=== PATIENT | female | born 1985 | race Caucasian/White ===

== ENCOUNTER 2022-03-27 19:26 | Inpatient (IN) | payer OTHER, SELFPAY ==
--- NOTE | 2022-03-27 | ECG_ITS ---
Test Reason : med clearance Blood Pressure : / mmHG Vent. Rate : 077 BPM Atrial Rate : 077 BPM P-R Int : 158 ms QRS Dur : 078 ms QT Int : 384 ms P-R-T Axes : 062 024 031 degrees QTc Int : 434 ms Normal sinus rhythm Normal ECG No previous ECGs available Referred By: Donte Oliver Electronically Signed By:HAWA SANCHEZ MD
--- NOTE | ~2022-03-27 | XR_ITS ---
EXAMINATION: XR FOOT, LEFT CLINICAL INFORMATION: New onset left foot pain. COMPARISON: None TECHNIQUE: AP, lateral, and oblique views of the left foot. FINDINGS: The bony alignments are intact. The cortices are intact. Articular margins, joint space appear unremarkable. Enthesopathy is noted at the insertional site of the Achilles tendon to the calcaneus. Os trigonum is present. XR/XR foot LT 2V IMPRESSION: 1. No radiographic evidence of any acute osseous, articular or soft tissue abnormalities. 2. Enthesopathy at the insertional site of the Achilles tendon to the calcaneus.
[2022-03-27 19:33] VITALS: BP 112/38; PULSE 84; RESP 16; TEMP 37.1; O2SAT 95; BMI 24.7
[2022-03-27 20:00] LABS: MANUAL DIFF FLAG NO
[2022-03-27 20:06] LABS: Basophils Percent Auto 0.3 % (0-2); Eosinophils Absolute Auto 0.2 X10*3/uL (0.0-0.4); Eosinophils Percent Auto 1.9 % (0-4); Hematocrit 36.5 % (37.0-47.0); Hemoglobin 12.5 g/dl (12.0-16.0); Imm Gran Abs Auto 0.05 X10*3/uL (0.00-0.03); Imm Gran Pct Auto 0.5 % (0.0-0.4); Lymphocytes Absolute Auto 3.1 X10*3/uL (1.2-4.9); Lymphocytes Percent Auto 29.8 % (20-40); Mean Corpuscular HGB Conc 34.2 g/dl (31.0-35.0); Mean Corpuscular Hemoglobin 32.1 pg (27.0-33.0); Mean Corpuscular Volume 93.8 fL (80.0-98.0); Mean Platelet Volume 10.7 fL (9.4-12.3); Monocytes Absolute Auto 0.7 X10*3/uL (0.1-1.2); Monocytes Percent Auto 6.2 % (2-11); Neutrophils Absolute Auto 6.4 x10*3/uL (2.0-8.3); Neutrophils Percent Auto 61.3 % (45-73); Platelet Count 244 X10*3/uL (160-400); Red Blood Count 3.89 X10*6/uL (4.20-5.50); Red Cell Distribution Width 13.2 % (11.0-16.0); White Blood Count 10.4 X10*3/uL (4.8-10.8)
[2022-03-27 20:07] LABS: Appearance Urine Clear; Color Urine Yellow; Glucose Urine UA Negative (Negative); Leukocyte Esterase Urine Negative (Negative); Nitrite Urine Negative (Negative); PH 6.5 (5.0-9.0); Specific Gravity - Urine 1.025 (1.005-1.025); Urine Blood Negative (Negative); Urine Ketones Negative (Negative); Urine Protein Negative (Neg-Trace)
[2022-03-27 20:12] LABS: UPreg QC Valid YES; Urine Pregnancy POSITIVE (NEGATIVE)
[2022-03-27 20:13] LABS: Amphetamine Screen Urine Not Detected (Not Detect); Barbiturates, Urine Not Detected (Not Detect); Benzodiazepines Screen Urine Not Detected (Not Detect); Cannabinoid Screen Urine Not Detected (Not Detect); Cocaine Screen Urine Not Detected (Not Detect); Fentanyl, urine Not Detected (Not Detect); Opiate Screen Urine Not Detected (Not Detect); Phencyclidine Screen Urine Not Detected (Not Detect)
[2022-03-27 20:14] LABS: COVID-19 Test Negative (Negative); IDNOW Serial# 16C4AD1C
[2022-03-27 20:26] LABS: Acetaminophen LAB < 17 mcg/mL (<30); Alanine Aminotransferase 10 U/L (0-31); Albumin Level 3.8 g/dL (3.5-5.0); Alkaline Phosphatase 75 U/L (39-117); Anion Gap 12 (12-20); Aspartate Amino Transferase 13 U/L (5-31); Bilirubin Total 0.2 mg/dL (0.0-1.0); Blood Urea Nitrogen 11 mg/dL (9-16); Calcium 9.3 mg/dL (8.4-10.2); Carbon Dioxide 25 mmol/L (22-29); Chloride 104 mmol/L (96-108); Creatinine Clr Calc Pharmacy 113.7; Estimated Glomerular Filt Rate > 60; Ethanol < 10 mg/dL; Glucose Random 83 mg/dL (60-115); Magnesium 1.8 mg/dL (1.6-2.6); Potassium 4.2 mmol/L (3.3-5.1); Salicylate < 5.0 mg/dL (15-30); Sodium 137 mmol/L (135-145); Total Protein 6.4 g/dL (6.5-8.0)
--- NOTE | 2022-03-27 21:37 | ED_ITS ---
HPI - Psych General Chief Complaint: Psychiatric Symptoms Stated Complaint: SI Time Seen by Provider: 03/27/22 19:37 Source: patient Mode of arrival: EMS Limitations: no limitations History of Present Illness HPI Narrative: Patient today for years old 18 weeks with history of bipolar disorder, major depressive disorder came from [facility] for suicidal ideation hearing auditory voices telling her to kill herself, feel depressed patient was seen by outpatient crisis Section 12 for admission as inpatient. Five from point of fib patient denies any complaints no vaginal bleeding or abdominal pain Related Data Home Medications Medication Instructions Recorded Confirmed aripiprazole 10 mg tablet 20 mg PO DAILY 03/27/22 03/27/22 docusate sodium 100 mg capsule 1 cap PO BID PRN constipation 03/27/22 03/27/22 folic acid 1 mg tablet 2 tab PO DAILY 03/27/22 03/27/22 haloperidol 2 mg tablet 2 mg PO BID PRN Psychosis 03/27/22 03/27/22 levetiracetam 500 mg tablet 1 tab PO BID 03/27/22 03/27/22 lorazepam 0.5 mg tablet 1 tab PO BID 03/27/22 03/27/22 ondansetron 4 mg disintegrating 1 tab PO Q6H PRN nausea/vomiting 03/27/22 03/27/22 tablet prazosin 1 mg capsule 1 cap PO BEDTIME 03/27/22 03/27/22 pyridoxine (vitamin B6) 25 mg 1 tab PO TID PRN nausea/vomiting 03/27/22 03/27/22 tablet (Vitamin B-6) sertraline 50 mg tablet 1 tab PO DAILY 03/27/22 03/27/22 Allergies Allergy/AdvReac Type Severity Reaction Status Date / Time No Known Allergies Allergy Verified 03/27/22 19:43 Review of Systems Review of Systems: Yes all other systems are reviewed and are negative PMFSH Social History Social History Household Members: Spouse and Family Housing: House Do you presently have visiting nurse or other home services: No Patient Tobacco Use Status: Never used Tobacco Smoked in Last 30 Days: No e-Cigarette/Vaping Use: Never Used Patient Interested in Nicotine Replacement: No Patient Given Instructions on How to Stop Smoking: No Second Hand Smoke Exposure: No Use of substances other than those prescribed or required for medical reasons: No Do you feel safe in your current relationship?: Yes Is there a partner from a previous relationship who is making you feel unsafe now?: No Are you made to feel afraid or neglected: No Advance Directives: No Advance Directives Information Provided: Yes Do you have thoughts of harming others: None Do you have a plan to hurt others: No Plan Recently lost weight without trying: No Nutrition Risks: No Nutritional Risk Patient : Yes : No Poor oral hygiene: No Physical Exam Vital Signs: Vital Signs: Last Vital Signs Temp 98.7 F 03/27/22 19:33 Pulse 84 03/27/22 19:33 Resp 16 03/27/22 19:33 BP 112/38 L 03/27/22 19:33 Pulse Ox 95 03/27/22 19:33 O2 Del Method 03/27/22 19:33 BMI result Body Mass Index 24.7 Appearance: Alert. Oriented X3. No acute distress. Eyes: PERRLA, No Nystagmus ENT: Pharynx normal. Oral Mucosa moist Neck: Normal inspection. Neck supple. CVS: Normal heart rate and rhythm. Pulses normal. Respiratory: No respiratory distress. Equal air entry bilateral, no wheezing/rales/rhonchi Abdomen: Soft and nontender. Bowel sounds are present, no mass palpable, no CVA tenderness Skin: Skin warm and dry. Normal skin color. Normal skin turgor. Extremities: No lower extremity edema. No calf tenderness psych; depressed mood quite calm cooperative denies any plan/suicidal at this time Neuro: Oriented X 3. No motor deficit. No sensory deficit.No cerebellar signs , cranial nerves II-XII intact Medical Decision Making Medical Decision Making MDM Narrative: Patient with major depression, bipolar disorder came from [facility] with increased depression suicidal feeling seen in the field by crisis plan to admit patient for inpatient psych evaluation Lab Data [facility] Lab Attestation statement: I reviewed the patient's lab results. 03/27/22 19:52 03/27/22 19:52 Labs: Lab Results 03/27/22 03/27/22 03/27/22 Range/Units 19:52 19:52 19:52 WBC (4.8-10.8) X10*3/uL RBC (4.20-5.50) X10*6/uL Hgb (12.0-16.0) g/dl Hct (37.0-47.0) % MCV (80.0-98.0) fL MCH (27.0-33.0) pg MCHC (31.0-35.0) g/dl RDW (11.0-16.0) % Plt Count (160-400) X10*3/uL MPV (9.4-12.3) fL Immature Gran % (Auto) (0.0-0.4) % Neut % (Auto) (45-73) % Lymph % (Auto) (20-40) % [place] % (Auto) (2-11) % Eos % (Auto) (0-4) % Baso % (Auto) (0-2) % Lymph # (Auto) (1.2-4.9) X10*3/uL [place] # (Auto) (0.1-1.2) X10*3/uL Eos # (Auto) (0.0-0.4) X10*3/uL Baso # (Auto) (0.0-0.2) X10*3/uL Abs Immat Gran (auto) (0.00-0.03) X10*3/uL Absolute Neuts (auto) (2.0-8.3) x10*3/uL Absolute Nucleated RBC (0.0-0.012) X10*3/uL Nucleated RBC % (auto) (0.0-0.2) /100WBC Sodium 137 (135-145) mmol/L Potassium 4.2 (3.3-5.1) mmol/L Chloride 104 (96-108) mmol/L Carbon Dioxide 25 (22-29) mmol/L Anion Gap 12 (12-20) BUN 11 (9-16) mg/dL Creatinine 0.60 (0.5-1.4) mg/dL Estim Creat Clear Calc 113.7 Estimated GFR > 60 Random Glucose 83 (60-115) mg/dL Calcium 9.3 (8.4-10.2) mg/dL Magnesium 1.8 (1.6-2.6) mg/dL Total Bilirubin 0.2 (0.0-1.0) mg/dL AST 13 (5-31) U/L ALT 10 (0-31) U/L Alkaline Phosphatase 75 (39-117) U/L Total Protein 6.4 L (6.5-8.0) g/dL Albumin 3.8 (3.5-5.0) g/dL Urine Color Urine Appearance Urine pH (5.0-9.0) Ur Specific [place] (1.005-1.025) Urine Protein (Neg-Trace) mg/dL Urine Glucose (UA) (Negative) mg/dL Urine Ketones (Negative) mg/dL Urine Blood (Negative) Urine Nitrite (Negative) Ur Leukocyte Esterase (Negative) Urine Test (NEGATIVE) Salicylates < 5.0 L (15-30) mg/dL Urine Opiates Screen (Not Detect) Urine Fentanyl Screen (Not Detect) Acetaminophen < 17 (<30) mcg/mL Ur Barbiturates Screen (Not Detect) Ur Phencyclidine Scrn (Not Detect) Ur Amphetamines Screen (Not Detect) U Benzodiazepines Scrn (Not Detect) Urine Cocaine Screen (Not Detect) U Marijuana (THC) Screen (Not Detect) Ethyl Alcohol < 10 mg/dL COVID-19 (NURIS) Negative (Negative) COVID-19 Clin Com See Note 03/27/22 03/27/22 03/27/22 Range/Units 19:52 19:55 19:55 WBC 10.4 (4.8-10.8) X10*3/uL RBC 3.89 L (4.20-5.50) X10*6/uL Hgb 12.5 (12.0-16.0) g/dl Hct 36.5 L (37.0-47.0) % MCV 93.8 (80.0-98.0) fL MCH 32.1 (27.0-33.0) pg MCHC 34.2 (31.0-35.0) g/dl RDW 13.2 (11.0-16.0) % Plt Count 244 (160-400) X10*3/uL MPV 10.7 (9.4-12.3) fL Immature Gran % (Auto) 0.5 H (0.0-0.4) % Neut % (Auto) 61.3 (45-73) % Lymph % (Auto) 29.8 (20-40) % [place] % (Auto) 6.2 (2-11) % Eos % (Auto) 1.9 (0-4) % Baso % (Auto) 0.3 (0-2) % Lymph # (Auto) 3.1 (1.2-4.9) X10*3/uL [place] # (Auto) 0.7 (0.1-1.2) X10*3/uL Eos # (Auto) 0.2 (0.0-0.4) X10*3/uL Baso # (Auto) 0.0 (0.0-0.2) X10*3/uL Abs Immat Gran (auto) 0.05 H (0.00-0.03) X10*3/uL Absolute Neuts (auto) 6.4 (2.0-8.3) x10*3/uL Absolute Nucleated RBC 0.000 (0.0-0.012) X10*3/uL Nucleated RBC % (auto) 0.0 (0.0-0.2) /100WBC Sodium (135-145) mmol/L Potassium (3.3-5.1) mmol/L Chloride (96-108) mmol/L Carbon Dioxide (22-29) mmol/L Anion Gap (12-20) BUN (9-16) mg/dL Creatinine (0.5-1.4) mg/dL Estim Creat Clear Calc Estimated GFR Random Glucose (60-115) mg/dL Calcium (8.4-10.2) mg/dL Magnesium (1.6-2.6) mg/dL Total Bilirubin (0.0-1.0) mg/dL AST (5-31) U/L ALT (0-31) U/L Alkaline Phosphatase (39-117) U/L Total Protein (6.5-8.0) g/dL Albumin (3.5-5.0) g/dL Urine Color Urine Appearance Urine pH (5.0-9.0) Ur Specific [place] (1.005-1.025) Urine Protein (Neg-Trace) mg/dL Urine Glucose (UA) (Negative) mg/dL Urine Ketones (Negative) mg/dL Urine Blood (Negative) Urine Nitrite (Negative) Ur Leukocyte Esterase (Negative) Urine Test POSITIVE H (NEGATIVE) Salicylates (15-30) mg/dL Urine Opiates Screen Not Detected (Not Detect) Urine Fentanyl Screen Not Detected (Not Detect) Acetaminophen (<30) mcg/mL Ur Barbiturates Screen Not Detected (Not Detect) Ur Phencyclidine Scrn Not Detected (Not Detect) Ur Amphetamines Screen Not Detected (Not Detect) U Benzodiazepines Scrn Not Detected (Not Detect) Urine Cocaine Screen Not Detected (Not Detect) U Marijuana (THC) Screen Not Detected (Not Detect) Ethyl Alcohol mg/dL COVID-19 (NURIS) (Negative) COVID-19 Clin Com 03/27/22 Range/Units 19:55 WBC (4.8-10.8) X10*3/uL RBC (4.20-5.50) X10*6/uL Hgb (12.0-16.0) g/dl Hct (37.0-47.0) % MCV (80.0-98.0) fL MCH (27.0-33.0) pg MCHC (31.0-35.0) g/dl RDW (11.0-16.0) % Plt Count (160-400) X10*3/uL MPV (9.4-12.3) fL Immature Gran % (Auto) (0.0-0.4) % Neut % (Auto) (45-73) % Lymph % (Auto) (20-40) % [place] % (Auto) (2-11) % Eos % (Auto) (0-4) % Baso % (Auto) (0-2) % Lymph # (Auto) (1.2-4.9) X10*3/uL [place] # (Auto) (0.1-1.2) X10*3/uL Eos # (Auto) (0.0-0.4) X10*3/uL Baso # (Auto) (0.0-0.2) X10*3/uL Abs Immat Gran (auto) (0.00-0.03) X10*3/uL Absolute Neuts (auto) (2.0-8.3) x10*3/uL Absolute Nucleated RBC (0.0-0.012) X10*3/uL Nucleated RBC % (auto) (0.0-0.2) /100WBC Sodium (135-145) mmol/L Potassium (3.3-5.1) mmol/L Chloride (96-108) mmol/L Carbon Dioxide (22-29) mmol/L Anion Gap (12-20) BUN (9-16) mg/dL Creatinine (0.5-1.4) mg/dL Estim Creat Clear Calc Estimated GFR Random Glucose (60-115) mg/dL Calcium (8.4-10.2) mg/dL Magnesium (1.6-2.6) mg/dL Total Bilirubin (0.0-1.0) mg/dL AST (5-31) U/L ALT (0-31) U/L Alkaline Phosphatase (39-117) U/L Total Protein (6.5-8.0) g/dL Albumin (3.5-5.0) g/dL Urine Color Yellow Urine Appearance Clear Urine pH 6.5 (5.0-9.0) Ur Specific [place] 1.025 (1.005-1.025) Urine Protein Negative (Neg-Trace) mg/dL Urine Glucose (UA) Negative (Negative) mg/dL Urine Ketones Negative (Negative) mg/dL Urine Blood Negative (Negative) Urine Nitrite Negative (Negative) Ur Leukocyte Esterase Negative (Negative) Urine Test (NEGATIVE) Salicylates (15-30) mg/dL Urine Opiates Screen (Not Detect) Urine Fentanyl Screen (Not Detect) Acetaminophen (<30) mcg/mL Ur Barbiturates Screen (Not Detect) Ur Phencyclidine Scrn (Not Detect) Ur Amphetamines Screen (Not Detect) U Benzodiazepines Scrn (Not Detect) Urine Cocaine Screen (Not Detect) U Marijuana (THC) Screen (Not Detect) Ethyl Alcohol mg/dL COVID-19 (NURIS) (Negative) COVID-19 Clin Com Discharge Plan Discharge Clinical Impression: Bipolar disorder, Suicidal ideation, with 18 completed weeks gestation Patient Disposition: Admitted As Inpatient Interventions: Admission Worksheet (ED) Last Done: 03/27/22 23:53 Discharge Date/Time: 03/27/22 23:53
--- NOTE | 2022-03-28 00:20 | PC.ADMIT ---
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 PT IS ALERT AND ORIENTED X 3. 15 MINUTE SAFETY CHECKS. PSYCH GROUP. PT IS 18 WEEKS WITH HER SECOND CHILD. PT DOES NOT CURRENTLY HAVE CUSTODY OF HER 1.5 YEAR OLD DAUGHTER. PT IS A CONDITIONAL VOLUNTARY. SHE REPORTS HEARING VOICES AND WANTING TO CUT HER ARMS. PT ENDORSES SI BUT NO HI. REPORTS MODERATE ANXIETY AND DEPRESSION. PT HAS BEEN HAVING NO DIFFICULTY SLEEPING OR EATING. PTS MOOD IS DEPRESSED AND AFFECT IS SULLEN. PT HAS A TRAUMA HISTORY. INSIGHT AND JUDGMENT ARE IMPAIRED.
[2022-03-28] MEDS: Sertraline HCL 50 MG TABLET PO (08:06)
[2022-03-28] MEDS: levETIRAcetam 500 MG TABLET PO ×2 (08:06→21:15)
[2022-03-28] MEDS: ARIPiprazole 20 MG TABLET PO (08:06)
[2022-03-28] MEDS: Folic Acid 1 MG TABLET 2 MG PO (08:06)
[2022-03-28 08:08] VITALS: BP 114/58; PULSE 101; RESP 18; TEMP 36.4; O2SAT 98
[2022-03-28 09:25] LABS: Estimated Average Glucose 94 mg/dL; Hemoglobin A1c % 4.9 %
[2022-03-28 09:28] LABS: Cholesterol 263 mg/dL; HDL Cholesterol 54 mg/dL; LDL Cholesterol Calculated 180 mg/dl; Triglycerides 148 mg/dL
--- NOTE | 2022-03-28 10:12 | PM.NEUROCN ---
History of Present Illness Data of Consult Service Date: 03/28/22 Primary Care Provider: Unknown Physician HPI Reason for consult: Seizure disorder 36 years old woman with bipolar disorder who was admitted on psychiatric floor. She was noted to be 18 weeks while she reported that she was taking levetiracetam for seizure disorder. This consultation was requested about proper use of this medicine during . Her previous records were not available at this time. She stated that she had 2 seizures last year while she was sleeping. She was taking to normal hospital and since then she has been taking this medicine. She has not been seeing a neurologist. She did not know what exactly happened during the seizure. Review of Systems Review of Systems: No recent seizure. [facility] Social History Social History Household Members: Spouse and Family Housing: House Do you presently have visiting nurse or other home services: No Patient Tobacco Use Status: Never used Tobacco Smoked in Last 30 Days: No e-Cigarette/Vaping Use: Never Used Patient Interested in Nicotine Replacement: No Patient Given Instructions on How to Stop Smoking: No Second Hand Smoke Exposure: No Use of substances other than those prescribed or required for medical reasons: No Currently Displaying Signs/Symptoms of Drug Intoxication Withdrawal: No Do you feel safe in your current relationship?: Yes Is there a partner from a previous relationship who is making you feel unsafe now?: No Are you made to feel afraid or neglected: No Advance Directives: No Advance Directives Information Provided: Yes Do you have thoughts of harming others: None Do you have a plan to hurt others: No Plan Recently lost weight without trying: No Nutrition Risks: No Nutritional Risk Patient : Yes : No Poor oral hygiene: No Meds Allergies Allergy/AdvReac Type Severity Reaction Status Date / Time No Known Allergies Allergy Verified 03/27/22 19:43 Active Medications: Current Medications Acetaminophen (Acetaminophen 325 Mg Tablet) 650 mg PO Q6H PRN PRN Reason: Headache/Pain Mild Scale (1-3) Al Hydroxide/Mg Hydroxide (Magnesium Hydrox/Alum Hydrox 30 Ml Oral.Susp) 30 ml PO Q6H PRN PRN Reason: Heartburn/Nausea Aripiprazole (Aripiprazole 20 Mg Tablet) 20 mg PO DAILY GREG Last Admin: 03/28/22 08:06 Dose: 20 mg Docusate Sodium (Docusate Sodium 100 Mg Capsule) 100 mg PO BID PRN PRN Reason: constipation Folic Acid (Folic Acid 1 Mg Tablet) 2 mg PO DAILY [facility] Last Admin: 03/28/22 08:06 Dose: 2 mg Haloperidol (Haloperidol 1 Mg Tablet) 2 mg PO BID PRN PRN Reason: Psychosis Levetiracetam (Levetiracetam 500 Mg Tablet) 500 mg PO BID [facility] Last Admin: 03/28/22 08:06 Dose: 500 mg Magnesium Hydroxide (Milk Of Magnesia 30 Ml Oral.Susp) 30 ml PO DAILY PRN PRN Reason: Constipation Ondansetron HCl (Ondansetron Odt 4 Mg Tab.Rapdis) 4 mg TRANSLINGU Q6H PRN PRN Reason: nausea/vomiting Prazosin HCl (Prazosin Hcl 1 Mg Capsule) 1 mg PO BEDTIME [facility]; Protocol Pyridoxine HCl (Pyridoxine Hcl (Vitamin B6) 50 Mg Tablet) 25 mg PO TID PRN PRN Reason: nausea/vomiting Sertraline HCl (Sertraline Hcl 50 Mg Tablet) 50 mg PO DAILY [facility] Last Admin: 03/28/22 08:06 Dose: 50 mg Trazodone HCl (Trazodone Hcl 50 Mg Tablet) 50 mg PO BEDTIME PRN PRN Reason: Insomnia Home Medications Medication Instructions Recorded Confirmed Last Taken Type aripiprazole 10 mg tablet 20 mg PO DAILY 03/27/22 03/27/22 Unknown History docusate sodium 100 mg capsule 1 cap PO BID PRN constipation 03/27/22 03/27/22 Unknown History folic acid 1 mg tablet 2 tab PO DAILY 03/27/22 03/27/22 Unknown History haloperidol 2 mg tablet 2 mg PO BID PRN Psychosis 03/27/22 03/27/22 Unknown History levetiracetam 500 mg tablet 1 tab PO BID 03/27/22 03/27/22 Unknown History lorazepam 0.5 mg tablet 1 tab PO BID 03/27/22 03/27/22 Unknown History ondansetron 4 mg disintegrating 1 tab PO Q6H PRN nausea/vomiting 03/27/22 03/27/22 Unknown History tablet prazosin 1 mg capsule 1 cap PO BEDTIME 03/27/22 03/27/22 Unknown History pyridoxine (vitamin B6) 25 mg 1 tab PO TID PRN nausea/vomiting 03/27/22 03/27/22 Unknown History tablet (Vitamin B-6) sertraline 50 mg tablet 1 tab PO DAILY 03/27/22 03/27/22 Unknown History Physical Exam Vital Signs: Vital Signs: Last Vital Signs Temp 97.6 F 03/28/22 08:08 Pulse 101 H 03/28/22 08:08 Resp 18 03/28/22 08:08 BP 114/58 L 03/28/22 08:08 Pulse Ox 98 03/28/22 08:08 O2 Del Method 03/28/22 08:08 BMI result Body Mass Index 24.7 Neuro: Other: She is alert and awake with normal spontaneity of speech fluency comprehension and flat affect. Face is symmetrical. Visual manjarrez are full. There is no pronator drift. [id number] testing is normal. Deep tendon reflexes were trace to 1+ with flexor plantars. Gait is normal. Speech is normal. Results Labs 03/27/22 19:52 03/27/22 19:52 Labs: Short CBC 03/27/22 Range/Units 19:52 WBC 10.4 (4.8-10.8) X10*3/uL Hgb 12.5 (12.0-16.0) g/dl Hct 36.5 L (37.0-47.0) % Plt Count 244 (160-400) X10*3/uL BMP 03/27/22 19:52 Sodium 137 Potassium 4.2 Chloride 104 Carbon Dioxide 25 BUN 11 Creatinine 0.60 Calcium 9.3 Liver Function 03/27/22 Range/Units 19:52 Total Bilirubin 0.2 (0.0-1.0) mg/dL AST 13 (5-31) U/L ALT 10 (0-31) U/L Alkaline Phosphatase 75 (39-117) U/L Albumin 3.8 (3.5-5.0) g/dL Urine 03/27/22 Range/Units 19:55 Urine Color Yellow Urine Appearance Clear Urine pH 6.5 (5.0-9.0) Ur Specific [place] 1.025 (1.005-1.025) Urine Protein Negative (Neg-Trace) mg/dL Urine Glucose (UA) Negative (Negative) mg/dL Assessment and Plan (1) Seizure disorder: Status: Acute 36 years old woman who stated that last year she had 2 seizures during sleep. She did not know exact details and her previous records were not available. She denied ever having seizures before or after. Apparently, she was put on levetiracetam. Now she was admitted for depression and was noted to be . If seizure disorder was confirmed, and I cannot confirm it without reviewing her records, she probably had generalized seizures. In that case, levetiracetam was a reasonable choice of drug. As far as is concerned, this type of medicine is discussed with the patient with pertinent risk factors but is not necessarily stopped, because of high risk of a seizure to then the medicine. Sometime the dose has to be adjusted. Following this thinking, I would recommend continuing the medicine. Please let me know if records from [facility] become available for review. Another aspect is, levetiracetam sometime can have behavioral side effects resulting in agitation and anger or worsening of psychiatric disease. For this, it might be reasonable to talk to her outpatient psychiatrist to see if that was noted after starting her on levetiracetam. If that was the case, it can be switched to an alternate medicine. Time Spent With Patient Time: Total time managing care of this patient today ____ minutes. Procedures Date of Service Date of Service: 03/28/22
[2022-03-28] MEDS: HaloperidoL 1 MG TABLET 2 MG PO ×2 (15:49→21:15)
[2022-03-28 16:20] VITALS: BP 133/81; PULSE 89; TEMP 36.1; O2SAT 95
--- NOTE | 2022-03-28 18:34 | HO.PSYADMNOT ---
HPI Date of Service: 03/28/22 Chief Complaint: Psychosis/SI Sources of Information: patient interviewed, chart reviewed and crisis/core team assessment reviewed HPI Subjective Notes: Ang Warning and Conditional Voluntary Healthcare Proxy: No Guardianship: No Medical Problems Affecting Mental Status: No Narrative: 36 yo female, history of PTSD, schizoaffective disorder 18 weeks with her son, presents from a local respite with an increase in SI, CAH, engaging in self-harming behaviors via scratching. Pt reports a recent increase in voices, distress, an increase in depressive sx without a clear precipitant. Reports a very supportive family and extended family, and in-laws, and states there is no current situational reason for sx increase. Pt has DCF involvement and had been told recently she needed to complete a 30 day in pt psych program as part of her requirement to maintain custody of her other children, ages 14 and 1.5 Past Psychiatric History: IP: several, she is used to admissions at [facility] there are too many people here at [facility] OP: Vanesa Katz-they are in process of termination as they have disagreed. Medical Evaluation Reviewed: Yes [facility] Medical History (Updated 03/29/22 @ 16:55 by Guerda Morton, ANDRAE) PTSD (post-traumatic stress disorder) Schizoaffective disorder Narrative: Seizure disorder-first occurred Dec 2021-she had 2 seizures while asleep- had observed them. Pt to meet with Dr. Gallagher from neurology at [facility] in the future. Family History: Mental Health issues she reports Social History: Born in [address] to many siblings to count Bullied in school, graduated 2009 [employer] student June 2020 Son-14 Daughter 1.5 Son-Expected August 2022 Parents, and In-laws are strong supports. Substance History: Hx of alcohol and cannabis to manage voices. Recent use x 1 of cannabis Trauma History: Affirms Diagnostics Vital Signs (24Hr): Vital Signs - 24 hr 03/27/22 19:33 03/28/22 08:08 03/28/22 16:20 Temperature 98.7 F 97.6 F 97.0 F Pulse Rate 84 101 H 89 Respiratory Rate 16 18 Blood Pressure 112/38 L 114/58 L 133/81 Pulse Oximetry 95 98 95 Oxygen Delivery Method Room Air Room Air Room Air BMI result Body Mass Index 24.7 Labs 03/27/22 19:52 03/27/22 19:52 Labs: Laboratory Results - last 48 hr 03/27/22 03/27/22 03/27/22 19:52 19:52 19:52 WBC RBC Hgb Hct MCV MCH MCHC RDW Plt Count MPV Immature Gran % (Auto) Neut % (Auto) Lymph % (Auto) [place] % (Auto) Eos % (Auto) Baso % (Auto) Lymph # (Auto) [place] # (Auto) Eos # (Auto) Baso # (Auto) Abs Immat Gran (auto) Absolute Neuts (auto) Absolute Nucleated RBC Nucleated RBC % (auto) Sodium 137 Potassium 4.2 Chloride 104 Carbon Dioxide 25 Anion Gap 12 BUN 11 Creatinine 0.60 Estim Creat Clear Calc 113.7 Estimated GFR > 60 Random Glucose 83 Estimat Average Glucose Hemoglobin A1c % Calcium 9.3 Magnesium 1.8 Total Bilirubin 0.2 AST 13 ALT 10 Alkaline Phosphatase 75 Total Protein 6.4 L Albumin 3.8 Triglycerides Cholesterol LDL Cholesterol, Calc HDL Cholesterol Urine Color Urine Appearance Urine pH Ur Specific Clarissa Urine Protein Urine Glucose (UA) Urine Ketones Urine Blood Urine Nitrite Ur Leukocyte Esterase Urine Test Salicylates < 5.0 L Urine Opiates Screen Urine Fentanyl Screen Acetaminophen < 17 Ur Barbiturates Screen Ur Phencyclidine Scrn Ur Amphetamines Screen U Benzodiazepines Scrn Urine Cocaine Screen U Marijuana (THC) Screen Ethyl Alcohol < 10 COVID-19 (NURIS) Negative COVID-19 Clin Com See Note 03/27/22 03/27/22 03/27/22 19:52 19:55 19:55 WBC 10.4 RBC 3.89 L Hgb 12.5 Hct 36.5 L MCV 93.8 MCH 32.1 MCHC 34.2 RDW 13.2 Plt Count 244 MPV 10.7 Immature Gran % (Auto) 0.5 H Neut % (Auto) 61.3 Lymph % (Auto) 29.8 [place] % (Auto) 6.2 Eos % (Auto) 1.9 Baso % (Auto) 0.3 Lymph # (Auto) 3.1 [place] # (Auto) 0.7 Eos # (Auto) 0.2 Baso # (Auto) 0.0 Abs Immat Gran (auto) 0.05 H Absolute Neuts (auto) 6.4 Absolute Nucleated RBC 0.000 Nucleated RBC % (auto) 0.0 Sodium Potassium Chloride Carbon Dioxide Anion Gap BUN Creatinine Estim Creat Clear Calc Estimated GFR Random Glucose Estimat Average Glucose Hemoglobin A1c % Calcium Magnesium Total Bilirubin AST ALT Alkaline Phosphatase Total Protein Albumin Triglycerides Cholesterol LDL Cholesterol, Calc HDL Cholesterol Urine Color Urine Appearance Urine pH Ur Specific Clarissa Urine Protein Urine Glucose (UA) Urine Ketones Urine Blood Urine Nitrite Ur Leukocyte Esterase Urine Test POSITIVE H Salicylates Urine Opiates Screen Not Detected Urine Fentanyl Screen Not Detected Acetaminophen Ur Barbiturates Screen Not Detected Ur Phencyclidine Scrn Not Detected Ur Amphetamines Screen Not Detected U Benzodiazepines Scrn Not Detected Urine Cocaine Screen Not Detected U Marijuana (THC) Screen Not Detected Ethyl Alcohol COVID-19 (NURSI) COVID-19 [facility] 03/27/22 03/28/22 03/28/22 19:55 08:30 08:30 WBC RBC Hgb Hct MCV MCH MCHC RDW Plt Count MPV Immature Gran % (Auto) Neut % (Auto) Lymph % (Auto) [place] % (Auto) Eos % (Auto) Baso % (Auto) Lymph # (Auto) [place] # (Auto) Eos # (Auto) Baso # (Auto) Abs Immat Gran (auto) Absolute Neuts (auto) Absolute Nucleated RBC Nucleated RBC % (auto) Sodium Potassium Chloride Carbon Dioxide Anion Gap BUN Creatinine Estim Creat Clear Calc Estimated GFR Random Glucose Estimat Average Glucose 94 Hemoglobin A1c % 4.9 Calcium Magnesium Total Bilirubin AST ALT Alkaline Phosphatase Total Protein Albumin Triglycerides 148 Cholesterol 263 LDL Cholesterol, Calc 180 HDL Cholesterol 54 Urine Color Yellow Urine Appearance Clear Urine pH 6.5 Ur Specific Clarissa 1.025 Urine Protein Negative Urine Glucose (UA) Negative Urine Ketones Negative Urine Blood Negative Urine Nitrite Negative Ur Leukocyte Esterase Negative Urine Test Salicylates Urine Opiates Screen Urine Fentanyl Screen Acetaminophen Ur Barbiturates Screen Ur Phencyclidine Scrn Ur Amphetamines Screen U Benzodiazepines Scrn Urine Cocaine Screen U Marijuana (THC) Screen Ethyl Alcohol COVID-19 (NURIS) COVID-19 [facility] Meds/Allergies Meds Home Medications Medication Instructions Recorded Confirmed Type aripiprazole 10 mg tablet 20 mg PO DAILY 03/27/22 03/27/22 History docusate sodium 100 mg capsule 1 cap PO BID PRN constipation 03/27/22 03/27/22 History folic acid 1 mg tablet 2 tab PO DAILY 03/27/22 03/27/22 History haloperidol 2 mg tablet 2 mg PO BID PRN Psychosis 03/27/22 03/27/22 History levetiracetam 500 mg tablet 1 tab PO BID 03/27/22 03/27/22 History lorazepam 0.5 mg tablet 1 tab PO BID 03/27/22 03/27/22 History ondansetron 4 mg disintegrating 1 tab PO Q6H PRN nausea/vomiting 03/27/22 03/27/22 History tablet prazosin 1 mg capsule 1 cap PO BEDTIME 03/27/22 03/27/22 History pyridoxine (vitamin B6) 25 mg 1 tab PO TID PRN nausea/vomiting 03/27/22 03/27/22 History tablet (Vitamin B-6) sertraline 50 mg tablet 1 tab PO DAILY 03/27/22 03/27/22 History Allergies Allergies Allergy/AdvReac Type Severity Reaction Status Date / Time No Known Allergies Allergy Verified 03/27/22 19:43 Mental Status Exam Mental Status Exam Patient Appearance: Fatigued Patient Orientation: Person, Place, Time and Situation Level of Consciousness: Alert Patient Behavior: Guarded, Talkative, Cooperative and Good Eye Contact Mood Description: Depressed and Anxious Affect Description: Anxious and Flat Patient Cognition Impaired: No Ability to Follow Directions: Good Speech Pattern: Spontaneous Speech and Soft-Spoken Memory Description: Episodic Impaired Hallucinations: Auditory Delusions: Paranoid Ideation and Present Perceptual Disturbances: Depersonalization and Derealization Thought Process: Rumination Thought Content: positive for Perseveration and positive for Suicidal Ideation Depressive Symptoms: Increased Anxiety, Diff. Making Decisions, Unhappiness, Thoughts of /Suicide and Low Self Esteem Abnormal Motor Activity Signs and Symptoms: Restlessness Judgement: Poor Assessment & Plan Assessment & Plan (1) with 18 completed weeks gestation: Status: Acute Code(s): Z3A.18 - 18 weeks gestation of (2) PTSD (post-traumatic stress disorder): Status: Acute Code(s): F43.10 - Post-traumatic stress disorder, unspecified (3) Schizoaffective disorder: Status: Acute Code(s): F25.9 - Schizoaffective disorder, unspecified Plan 36 yo female, 18 weeks , admitted from [facility] with SI, SIBS, and CAH. No clear precipitant to sx exacerbation except pt was told by DCF that she needs to do a 30 day inpatient psychiatric program as a requirement for keeping her children. Plan: Continue current regime Consult Dr. Fledman regarding Collateral contacts with family, providers, DCF Patient educated on: therapeutic strategies Informed Consent: further education needed Reason for continued inpatient stay Substantial Risk for: harm to self and rapid decompensation Statement Statement: I have reviewed the history and physical and performed a pertinent examination on my patient. No changes have occurred unless specified. If the History and Physical was not performed prior to admission, the Hospitalist's service will be consulted for completing the admission physical. Time Spent With Patient Time: Total time managing care of this patient today __60__ minutes.
[2022-03-28] MEDS: Prazosin HCL 1 MG CAPSULE PO (21:15)
[2022-03-29 07:00] VITALS: BMI 39.4
[2022-03-29] MEDS: Sertraline HCL 50 MG TABLET PO (08:12)
[2022-03-29] MEDS: ARIPiprazole 20 MG TABLET PO (08:12)
[2022-03-29] MEDS: levETIRAcetam 500 MG TABLET PO ×2 (08:12→21:19)
[2022-03-29] MEDS: Folic Acid 1 MG TABLET 2 MG PO (08:12)
[2022-03-29 08:20] VITALS: BP 97/59; PULSE 47; RESP 18; TEMP 36.6; O2SAT 97
--- NOTE | 2022-03-29 16:59 | HO.PSYCHPN ---
Subjective Subjective Date of Service: 03/29/22 Reason For Visit: Psychosis/SI Subjective Notes: Conditional Voluntary Healthcare Proxy: No Guardianship: No Medical Problems Affecting Mental Status: No Interim History: Anita reports feeling some improvement. Reports she slept well and overall is feeling less anxious. Discussed issues with incontinence (urinary) pt's had discussed with social media senior associate. Pt reports that these symptoms have drastically improved with medication changes. I have had no accidents . Discussed possible urology referral-pt not thinking it is needed at this time. Continues to have difficulty with the size of the unit and the amount of patients-prefers respite. States she is feeling safe, no thoughts of self harm (Family and OP treaters note pt is often anxious and overwhelmed when admitted with others-social anxiety sx increase). Care reviewed with Dr. Feldman from OB who suggested pre-byron vitamins. Pt agrees-we will need to get an outside supply as hospital formulary does not carry these. Pt doing some walking/pacing to manage sx-not as tearful today, connecting with team. Medication Compliance: Yes Side effects from medications: No Attending Groups: No Review of Systems Acute medical concerns: Yes 18 weeks Medical Review of Systems: unchanged Mental Status Exam Mental Status Exam Patient Appearance: Appropriate Patient Orientation: Person, Place, Time and Situation Level of Consciousness: Alert Patient Behavior: Talkative, Cooperative and Good Eye Contact Mood Description: Anxious Affect Description: Anxious and Flat Patient Cognition Impaired: No Ability to Follow Directions: Good Speech Pattern: Spontaneous Speech and Soft-Spoken Memory Description: Episodic Impaired Delusions: Present Perceptual Disturbances: Depersonalization and Derealization Thought Process: Rumination Thought Content: positive for Perseveration and positive for Suicidal Ideation (denies) Depressive Symptoms: Increased Anxiety, Unhappiness, Thoughts of /Suicide (denies) and Low Self Esteem Abnormal Motor Activity Signs and Symptoms: Restlessness Judgement: Poor Diagnostics Vital Signs (24Hr): Vital Signs - 24 hr 03/29/22 08:20 Temperature 97.8 F Pulse Rate 47 L Respiratory Rate 18 Blood Pressure 97/59 L Pulse Oximetry 97 Oxygen Delivery Method Room Air BMI result Body Mass Index 39.4 Labs 03/27/22 19:52 03/27/22 19:52 Labs: Laboratory Results - last 48 hr 03/27/22 03/27/22 03/27/22 19:52 19:52 19:52 WBC RBC Hgb Hct MCV MCH MCHC RDW Plt Count MPV Immature Gran % (Auto) Neut % (Auto) Lymph % (Auto) [place] % (Auto) Eos % (Auto) Baso % (Auto) Lymph # (Auto) [place] # (Auto) Eos # (Auto) Baso # (Auto) Abs Immat Gran (auto) Absolute Neuts (auto) Absolute Nucleated RBC Nucleated RBC % (auto) Sodium 137 Potassium 4.2 Chloride 104 Carbon Dioxide 25 Anion Gap 12 BUN 11 Creatinine 0.60 Estim Creat Clear Calc 113.7 Estimated GFR > 60 Random Glucose 83 Estimat Average Glucose Hemoglobin A1c % Calcium 9.3 Magnesium 1.8 Total Bilirubin 0.2 AST 13 ALT 10 Alkaline Phosphatase 75 Total Protein 6.4 L Albumin 3.8 Triglycerides Cholesterol LDL Cholesterol, Calc HDL Cholesterol Urine Color Urine Appearance Urine pH Ur Specific [place] Urine Protein Urine Glucose (UA) Urine Ketones Urine Blood Urine Nitrite Ur Leukocyte Esterase Urine Test Salicylates < 5.0 L Urine Opiates Screen Urine Fentanyl Screen Acetaminophen < 17 Ur Barbiturates Screen Ur Phencyclidine Scrn Ur Amphetamines Screen U Benzodiazepines Scrn Urine Cocaine Screen U Marijuana (THC) Screen Ethyl Alcohol < 10 COVID-19 (NURIS) Negative COVID-19 Clin Com See Note 03/27/22 03/27/22 03/27/22 19:52 19:55 19:55 WBC 10.4 RBC 3.89 L Hgb 12.5 Hct 36.5 L MCV 93.8 MCH 32.1 MCHC 34.2 RDW 13.2 Plt Count 244 MPV 10.7 Immature Gran % (Auto) 0.5 H Neut % (Auto) 61.3 Lymph % (Auto) 29.8 [place] % (Auto) 6.2 Eos % (Auto) 1.9 Baso % (Auto) 0.3 Lymph # (Auto) 3.1 [place] # (Auto) 0.7 Eos # (Auto) 0.2 Baso # (Auto) 0.0 Abs Immat Gran (auto) 0.05 H Absolute Neuts (auto) 6.4 Absolute Nucleated RBC 0.000 Nucleated RBC % (auto) 0.0 Sodium Potassium Chloride Carbon Dioxide Anion Gap BUN Creatinine Estim Creat Clear Calc Estimated GFR Random Glucose Estimat Average Glucose Hemoglobin A1c % Calcium Magnesium Total Bilirubin AST ALT Alkaline Phosphatase Total Protein Albumin Triglycerides Cholesterol LDL Cholesterol, Calc HDL Cholesterol Urine Color Urine Appearance Urine pH Ur Specific [place] Urine Protein Urine Glucose (UA) Urine Ketones Urine Blood Urine Nitrite Ur Leukocyte Esterase Urine Test POSITIVE H Salicylates Urine Opiates Screen Not Detected Urine Fentanyl Screen Not Detected Acetaminophen Ur Barbiturates Screen Not Detected Ur Phencyclidine Scrn Not Detected Ur Amphetamines Screen Not Detected U Benzodiazepines Scrn Not Detected Urine Cocaine Screen Not Detected U Marijuana (THC) Screen Not Detected Ethyl Alcohol COVID-19 (NURIS) COVID-19 [facility] Com 03/27/22 03/28/22 03/28/22 19:55 08:30 08:30 WBC RBC Hgb Hct MCV MCH MCHC RDW Plt Count MPV Immature Gran % (Auto) Neut % (Auto) Lymph % (Auto) [place] % (Auto) Eos % (Auto) Baso % (Auto) Lymph # (Auto) [place] # (Auto) Eos # (Auto) Baso # (Auto) Abs Immat Gran (auto) Absolute Neuts (auto) Absolute Nucleated RBC Nucleated RBC % (auto) Sodium Potassium Chloride Carbon Dioxide Anion Gap BUN Creatinine Estim Creat Clear Calc Estimated GFR Random Glucose Estimat Average Glucose 94 Hemoglobin A1c % 4.9 Calcium Magnesium Total Bilirubin AST ALT Alkaline Phosphatase Total Protein Albumin Triglycerides 148 Cholesterol 263 LDL Cholesterol, Calc 180 HDL Cholesterol 54 Urine Color Yellow Urine Appearance Clear Urine pH 6.5 Ur Specific [place] 1.025 Urine Protein Negative Urine Glucose (UA) Negative Urine Ketones Negative Urine Blood Negative Urine Nitrite Negative Ur Leukocyte Esterase Negative Urine Test Salicylates Urine Opiates Screen Urine Fentanyl Screen Acetaminophen Ur Barbiturates Screen Ur Phencyclidine Scrn Ur Amphetamines Screen U Benzodiazepines Scrn Urine Cocaine Screen U Marijuana (THC) Screen Ethyl Alcohol COVID-19 (NURIS) COVID-19 Clin Com Medications Medications Current Medications Acetaminophen (Acetaminophen 325 Mg Tablet) 650 mg PO Q6H PRN PRN Reason: Headache/Pain Mild Scale (1-3) Al Hydroxide/Mg Hydroxide (Magnesium Hydrox/Alum Hydrox 30 Ml Oral.Susp) 30 ml PO Q6H PRN PRN Reason: Heartburn/Nausea Aripiprazole (Aripiprazole 20 Mg Tablet) 20 mg PO DAILY [facility] Last Admin: 03/29/22 08:12 Dose: 20 mg Docusate Sodium (Docusate Sodium 100 Mg Capsule) 100 mg PO BID PRN PRN Reason: constipation Folic Acid (Folic Acid 1 Mg Tablet) 2 mg PO DAILY [facility] Last Admin: 03/29/22 08:12 Dose: 2 mg Haloperidol (Haloperidol 1 Mg Tablet) 2 mg PO BID PRN PRN Reason: Psychosis Last Admin: 03/28/22 21:15 Dose: 2 mg Levetiracetam (Levetiracetam 500 Mg Tablet) 500 mg PO BID [facility] Last Admin: 03/29/22 08:12 Dose: 500 mg Magnesium Hydroxide (Milk Of Magnesia 30 Ml Oral.Susp) 30 ml PO DAILY PRN PRN Reason: Constipation Ondansetron HCl (Ondansetron Odt 4 Mg Tab.Rapdis) 4 mg TRANSLINGU Q6H PRN PRN Reason: nausea/vomiting Prazosin HCl (Prazosin Hcl 1 Mg Capsule) 1 mg PO BEDTIME [facility]; Protocol Last Admin: 03/28/22 21:15 Dose: 1 mg Pyridoxine HCl (Pyridoxine Hcl (Vitamin B6) 50 Mg Tablet) 25 mg PO TID PRN PRN Reason: nausea/vomiting Sertraline HCl (Sertraline Hcl 50 Mg Tablet) 50 mg PO DAILY [facility] Last Admin: 03/29/22 08:12 Dose: 50 mg Trazodone HCl (Trazodone Hcl 50 Mg Tablet) 50 mg PO BEDTIME PRN PRN Reason: Insomnia Allergies Allergies Allergy/AdvReac Type Severity Reaction Status Date / Time No Known Allergies Allergy Verified 03/27/22 19:43 Assessment & Plan Assessment & Plan (1) with 18 completed weeks gestation: Status: Acute Code(s): Z3A.18 - 18 weeks gestation of (2) PTSD (post-traumatic stress disorder): Status: Acute Code(s): F43.10 - Post-traumatic stress disorder, unspecified (3) Schizoaffective disorder: Status: Acute Code(s): F25.9 - Schizoaffective disorder, unspecified Plan 36 yo female, 18 weeks , admitted from respite with SI, SIBS, and CAH. No clear precipitant to sx exacerbation except pt was told by DCF that she needs to do a 30 day inpatient psychiatric program as a requirement for keeping her children. Plan: Continue current regime Consult Dr. Feldman regarding Collateral contacts with family, providers, DCF 03/29/22 Continue current regime Encourage milieu participation Pre-byron vitamin-will supply on 03/30 (consult with Dr. Feldman) Patient educated on: therapeutic strategies Informed Consent: understands and further education needed Reason for contiued inpatient stay Substantial Risk for: harm to self, rapid decompensation and med/psych decompensation Time Spent With Patient Time: Total time managing care of this patient today __30__ minutes.
[2022-03-29 18:00] VITALS: BP 112/59; PULSE 75; TEMP 36.1; O2SAT 95
[2022-03-29] MEDS: Prazosin HCL 1 MG CAPSULE PO (21:19)
[2022-03-29] MEDS: Acetaminophen 325 MG TABLET 650 MG PO (21:31)
[2022-03-30 06:00] VITALS: BP 126/59; PULSE 96; RESP 18; O2SAT 98
[2022-03-30] MEDS: ARIPiprazole 20 MG TABLET PO (08:05)
[2022-03-30] MEDS: levETIRAcetam 500 MG TABLET PO ×2 (08:05→19:20)
[2022-03-30] MEDS: Folic Acid 1 MG TABLET 2 MG PO (08:05)
[2022-03-30] MEDS: Sertraline HCL 50 MG TABLET PO (08:05)
[2022-03-30] MEDS: HaloperidoL 1 MG TABLET 2 MG PO (09:51)
--- NOTE | 2022-03-30 14:53 | HO.PSYCHPN ---
Subjective Subjective Date of Service: 03/30/22 Reason For Visit: Psychosis/SI Subjective Notes: Conditional Voluntary Healthcare Proxy: No Guardianship: No Medical Problems Affecting Mental Status: No Interim History: Tearful this am. Discussed the difficulty in being on a large unit. too many people. Feeling threatened by a peer who is symptomatic, education, support offered along with planning extra support with pt and team. Reports voices come and go and that will be that way forever I think Discussed DCF requirements and what is reasonable. Pt agrees. Responds to team support. Medication Compliance: Yes Side effects from medications: No Attending Groups: Intermittent Review of Systems Acute medical concerns: No Medical Review of Systems: unchanged Mental Status Exam Mental Status Exam Patient Appearance: Appropriate Patient Orientation: Person, Place, Time and Situation Level of Consciousness: Alert Patient Behavior: Talkative, Cooperative and Good Eye Contact Mood Description: Anxious Affect Description: Anxious and Flat Patient Cognition Impaired: No Ability to Follow Directions: Good Speech Pattern: Spontaneous Speech and Soft-Spoken Memory Description: Episodic Impaired Delusions: Present Perceptual Disturbances: Depersonalization and Derealization Thought Process: Rumination Thought Content: positive for Perseveration and positive for Suicidal Ideation (denies) Depressive Symptoms: Increased Anxiety, Crying Spells, Unhappiness, Thoughts of /Suicide (denies) and Low Self Esteem Abnormal Motor Activity Signs and Symptoms: Restlessness Judgement: Poor Diagnostics Vital Signs (24Hr): Vital Signs - 24 hr 03/29/22 18:00 03/30/22 06:00 Temperature 96.9 F Pulse Rate 75 96 Respiratory Rate 18 Blood Pressure 112/59 L 126/59 L Pulse Oximetry 95 98 Oxygen Delivery Method Room Air Room Air BMI result Body Mass Index 39.4 Labs 03/27/22 19:52 03/27/22 19:52 Medications Medications Current Medications Acetaminophen (Acetaminophen 325 Mg Tablet) 650 mg PO Q6H PRN PRN Reason: Headache/Pain Mild Scale (1-3) Last Admin: 03/29/22 21:31 Dose: 650 mg Al Hydroxide/Mg Hydroxide (Magnesium Hydrox/Alum Hydrox 30 Ml Oral.Susp) 30 ml PO Q6H PRN PRN Reason: Heartburn/Nausea Aripiprazole (Aripiprazole 20 Mg Tablet) 20 mg PO DAILY [facility] Last Admin: 03/30/22 08:05 Dose: 20 mg Docusate Sodium (Docusate Sodium 100 Mg Capsule) 100 mg PO BID PRN PRN Reason: constipation Folic Acid (Folic Acid 1 Mg Tablet) 2 mg PO DAILY [facility] Last Admin: 03/30/22 08:05 Dose: 2 mg Haloperidol (Haloperidol 1 Mg Tablet) 2 mg PO BID PRN PRN Reason: Psychosis Last Admin: 03/30/22 09:51 Dose: 2 mg Levetiracetam (Levetiracetam 500 Mg Tablet) 500 mg PO BID [facility] Last Admin: 03/30/22 08:05 Dose: 500 mg Magnesium Hydroxide (Milk Of Magnesia 30 Ml Oral.Susp) 30 ml PO DAILY PRN PRN Reason: Constipation Non-Formulary Medication ( Advanced Multivitamin) 1 tab PO DAILY [facility] Non-Formulary Medication ( Choline Tabs) 1 tab PO DAILY [facility] Ondansetron HCl (Ondansetron Odt 4 Mg Tab.Rapdis) 4 mg TRANSLINGU Q6H PRN PRN Reason: nausea/vomiting Prazosin HCl (Prazosin Hcl 1 Mg Capsule) 1 mg PO BEDTIME [facility]; Protocol Last Admin: 03/29/22 21:19 Dose: 1 mg Pyridoxine HCl (Pyridoxine Hcl (Vitamin B6) 50 Mg Tablet) 25 mg PO TID PRN PRN Reason: nausea/vomiting Sertraline HCl (Sertraline Hcl 50 Mg Tablet) 50 mg PO DAILY [facility] Last Admin: 03/30/22 08:05 Dose: 50 mg Trazodone HCl (Trazodone Hcl 50 Mg Tablet) 50 mg PO BEDTIME PRN PRN Reason: Insomnia Allergies Allergies Allergy/AdvReac Type Severity Reaction Status Date / Time No Known Allergies Allergy Verified 03/27/22 19:43 Assessment & Plan Assessment & Plan (1) with 18 completed weeks gestation: Status: Acute Code(s): Z3A.18 - 18 weeks gestation of (2) PTSD (post-traumatic stress disorder): Status: Acute Code(s): F43.10 - Post-traumatic stress disorder, unspecified (3) Schizoaffective disorder: Status: Acute Code(s): F25.9 - Schizoaffective disorder, unspecified Plan 36 yo female, 18 weeks , [facility], SIBS, and CAH. No clear precipitant to sx exacerbation except pt was told by DCF that she needs to do a 30 day inpatient psychiatric program as a requirement for keeping her children. Plan: Continue current regime Consult Dr. Feldman regarding Collateral contacts with family, providers, DCF 03/29/22 Continue current regime Encourage milieu participation Pre- vitamin-will supply on 03/30 (consult with Dr. Feldman) 03/30/22 Continue current plan/regime Patient educated on: medication risk/benefits and therapeutic strategies Informed Consent: understands and further education needed Reason for contiued inpatient stay Substantial Risk for: med/psych decompensation Time Spent With Patient Time: Total time managing care of this patient today _35___ minutes.
[2022-03-30] MEDS: Prazosin HCL 1 MG CAPSULE PO (19:20)
[2022-03-30 19:25] VITALS: BP 113/56; PULSE 76; TEMP 36.6
[2022-03-31 06:00] VITALS: BP 123/64; PULSE 85; RESP 14; TEMP 36.3
[2022-03-31] MEDS: Sertraline HCL 50 MG TABLET PO (08:30)
[2022-03-31] MEDS: Folic Acid 1 MG TABLET 2 MG PO (08:30)
[2022-03-31] MEDS: ARIPiprazole 20 MG TABLET PO (08:30)
[2022-03-31] MEDS: levETIRAcetam 500 MG TABLET PO ×2 (08:30→20:06)
[2022-03-31] MEDS: Acetaminophen 325 MG TABLET 650 MG PO (16:11)
[2022-03-31 18:00] VITALS: BP 127/60; PULSE 83; RESP 18
--- NOTE | 2022-03-31 18:30 | P.PNPSI_ITS ---
Subjective Subjective Date of Service: 03/31/22 Reason For Visit: Psychosis/SI Subjective Notes: Conditional Voluntary Healthcare Proxy: No Guardianship: No Medical Problems Affecting Mental Status: No Interim History: I feel better today. Pt asks to discuss discharge. Review of making some connection with DCF prior to discharge to facilitate a smooth transition. Pt unsure if she wants to go to family home or return to respite. Visable in milieu, increased engagement with her peers Medication Compliance: Yes Side effects from medications: No Attending Groups: Intermittent Review of Systems Acute medical concerns: No Medical Review of Systems: unchanged Mental Status Exam Mental Status Exam Patient Appearance: Appropriate Patient Orientation: Person, Place, Time and Situation Level of Consciousness: Alert Patient Behavior: Talkative, Cooperative and Good Eye Contact Mood Description: Anxious Affect Description: Anxious and Flat Patient Cognition Impaired: No Ability to Follow Directions: Good Speech Pattern: Spontaneous Speech and Soft-Spoken Memory Description: Episodic Impaired Delusions: Present Perceptual Disturbances: Depersonalization and Derealization Thought Process: Rumination Thought Content: positive for Perseveration and positive for Suicidal Ideation (denies) Depressive Symptoms: Increased Anxiety, Crying Spells, Unhappiness, Thoughts of /Suicide (denies) and Low Self Esteem Abnormal Motor Activity Signs and Symptoms: Restlessness Judgement: Poor Diagnostics Vital Signs (24Hr): Vital Signs - 24 hr 03/30/22 19:25 03/31/22 06:00 Temperature 97.8 F 97.3 F Pulse Rate 76 85 Respiratory Rate 14 Blood Pressure 113/56 L 123/64 BMI result Body Mass Index 39.4 Labs 03/27/22 19:52 03/27/22 19:52 Medications Medications Current Medications Acetaminophen (Acetaminophen 325 Mg Tablet) 650 mg PO Q6H PRN PRN Reason: Headache/Pain Mild Scale (1-3) Last Admin: 03/31/22 16:11 Dose: 650 mg Al Hydroxide/Mg Hydroxide (Magnesium Hydrox/Alum Hydrox 30 Ml Oral.Susp) 30 ml PO Q6H PRN PRN Reason: Heartburn/Nausea Aripiprazole (Aripiprazole 20 Mg Tablet) 20 mg PO DAILY [facility] Last Admin: 03/31/22 08:30 Dose: 20 mg Docusate Sodium (Docusate Sodium 100 Mg Capsule) 100 mg PO BID PRN PRN Reason: constipation Folic Acid (Folic Acid 1 Mg Tablet) 2 mg PO DAILY [facility] Last Admin: 03/31/22 08:30 Dose: 2 mg Haloperidol (Haloperidol 1 Mg Tablet) 2 mg PO BID PRN PRN Reason: Psychosis Last Admin: 03/30/22 09:51 Dose: 2 mg Levetiracetam (Levetiracetam 500 Mg Tablet) 500 mg PO BID [facility] Last Admin: 03/31/22 08:30 Dose: 500 mg Magnesium Hydroxide (Milk Of Magnesia 30 Ml Oral.Susp) 30 ml PO DAILY PRN PRN Reason: Constipation Non-Formulary Medication ( Advanced Multivitamin) 1 tab PO DAILY [facility] Last Admin: 03/31/22 08:30 Dose: 1 tab Non-Formulary Medication ( Choline Tabs) 1 tab PO DAILY [facility] Last Admin: 03/31/22 08:30 Dose: 1 tab Ondansetron HCl (Ondansetron Odt 4 Mg Tab.Rapdis) 4 mg TRANSLINGU Q6H PRN PRN Reason: nausea/vomiting Prazosin HCl (Prazosin Hcl 1 Mg Capsule) 1 mg PO BEDTIME [facility]; Protocol Last Admin: 03/30/22 19:20 Dose: 1 mg Pyridoxine HCl (Pyridoxine Hcl (Vitamin B6) 50 Mg Tablet) 25 mg PO TID PRN PRN Reason: nausea/vomiting Sertraline HCl (Sertraline Hcl 50 Mg Tablet) 50 mg PO DAILY [facility] Last Admin: 03/31/22 08:30 Dose: 50 mg Trazodone HCl (Trazodone Hcl 50 Mg Tablet) 50 mg PO BEDTIME PRN PRN Reason: Insomnia Allergies Allergies Allergy/AdvReac Type Severity Reaction Status Date / Time No Known Allergies Allergy Verified 03/27/22 19:43 Assessment & Plan Assessment & Plan (1) with 18 completed weeks gestation: Status: Acute Code(s): Z3A.18 - 18 weeks gestation of (2) PTSD (post-traumatic stress disorder): Status: Acute Code(s): F43.10 - Post-traumatic stress disorder, unspecified (3) Schizoaffective disorder: Status: Acute Code(s): F25.9 - Schizoaffective disorder, unspecified Plan 36 yo female, 18 weeks , admitted from respite with SI, SIBS, and CAH. No clear precipitant to sx exacerbation except pt was told by DCF that she needs to do a 30 day inpatient psychiatric program as a requirement for keeping her children. Plan: Continue current regime Consult Dr. Feldman regarding Collateral contacts with family, providers, DCF 03/29/22 Continue current regime Encourage milieu participation Pre- vitamin-will supply on 03/30 (consult with Dr. Feldman) 03/31/20 Improved today. Continue current plan. Patient educated on: therapeutic strategies Informed Consent: understands and further education needed Reason for contiued inpatient stay Substantial Risk for: med/psych decompensation Time Spent With Patient Time: Total time managing care of this patient today _15___ minutes.
[2022-03-31] MEDS: Prazosin HCL 1 MG CAPSULE PO (20:06)
[2022-04-01 06:00] VITALS: BP 118/70; PULSE 78; RESP 14; TEMP 36.6; O2SAT 97
[2022-04-01] MEDS: Folic Acid 1 MG TABLET 2 MG PO (08:31)
[2022-04-01] MEDS: ARIPiprazole 20 MG TABLET PO (08:31)
[2022-04-01] MEDS: levETIRAcetam 500 MG TABLET PO ×2 (08:31→20:48)
[2022-04-01] MEDS: Sertraline HCL 50 MG TABLET PO (08:31)
--- NOTE | 2022-04-01 19:21 | HO.PSYCHPN ---
Subjective Subjective Date of Service: 04/01/22 Reason For Visit: Psychosis/SI Subjective Notes: Conditional Voluntary Healthcare Proxy: No Guardianship: No Medical Problems Affecting Mental Status: No Interim History: Reports feeling improved. Foot pain due to increase in walking to manage anxiety when first admitted. XRay negative Discussed returning home Denies SI, AH, VH, fear, paranoia. I like it here, I know you all now and it is good to be here. More interactive with peers Venturing into groups briefly as well for brief periods. Medication Compliance: Yes Side effects from medications: No Attending Groups: Intermittent Review of Systems Acute medical concerns: No Medical Review of Systems: unchanged Mental Status Exam Mental Status Exam Patient Appearance: Appropriate Patient Orientation: Person, Place, Time and Situation Level of Consciousness: Alert Patient Behavior: Talkative, Cooperative and Good Eye Contact Mood Description: Anxious Affect Description: Anxious and Flat Patient Cognition Impaired: No Ability to Follow Directions: Good Speech Pattern: Spontaneous Speech and Soft-Spoken Memory Description: Episodic Impaired Delusions: Present Perceptual Disturbances: Depersonalization and Derealization Thought Process: Rumination Thought Content: positive for Perseveration and positive for Suicidal Ideation (denies) Depressive Symptoms: Increased Anxiety, Crying Spells, Unhappiness, Thoughts of /Suicide (denies) and Low Self Esteem Abnormal Motor Activity Signs and Symptoms: Restlessness Judgement: Poor Diagnostics Vital Signs (24Hr): Vital Signs - 24 hr 04/01/22 06:00 Temperature 97.9 F Pulse Rate 78 Respiratory Rate 14 Blood Pressure 118/70 Pulse Oximetry 97 Oxygen Delivery Method Room Air BMI result Body Mass Index 39.4 Labs 03/27/22 19:52 03/27/22 19:52 Medications Medications Current Medications Acetaminophen (Acetaminophen 325 Mg Tablet) 650 mg PO Q6H PRN PRN Reason: Headache/Pain Mild Scale (1-3) Last Admin: 03/31/22 16:11 Dose: 650 mg Al Hydroxide/Mg Hydroxide (Magnesium Hydrox/Alum Hydrox 30 Ml Oral.Susp) 30 ml PO Q6H PRN PRN Reason: Heartburn/Nausea Aripiprazole (Aripiprazole 20 Mg Tablet) 20 mg PO DAILY [facility] Last Admin: 04/01/22 08:31 Dose: 20 mg Docusate Sodium (Docusate Sodium 100 Mg Capsule) 100 mg PO BID PRN PRN Reason: constipation Folic Acid (Folic Acid 1 Mg Tablet) 2 mg PO DAILY [facility] Last Admin: 04/01/22 08:31 Dose: 2 mg Haloperidol (Haloperidol 1 Mg Tablet) 2 mg PO BID PRN PRN Reason: Psychosis Last Admin: 03/30/22 09:51 Dose: 2 mg Levetiracetam (Levetiracetam 500 Mg Tablet) 500 mg PO BID [facility] Last Admin: 04/01/22 08:31 Dose: 500 mg Magnesium Hydroxide (Milk Of Magnesia 30 Ml Oral.Susp) 30 ml PO DAILY PRN PRN Reason: Constipation Non-Formulary Medication ( Advanced Multivitamin) 1 tab PO DAILY [facility] Last Admin: 04/01/22 09:04 Dose: 1 tab Non-Formulary Medication ( Choline Tabs) 1 tab PO DAILY [facility] Last Admin: 04/01/22 09:04 Dose: 1 tab Ondansetron HCl (Ondansetron Odt 4 Mg Tab.Rapdis) 4 mg TRANSLINGU Q6H PRN PRN Reason: nausea/vomiting Prazosin HCl (Prazosin Hcl 1 Mg Capsule) 1 mg PO BEDTIME [facility]; Protocol Last Admin: 03/31/22 20:06 Dose: 1 mg Pyridoxine HCl (Pyridoxine Hcl (Vitamin B6) 50 Mg Tablet) 25 mg PO TID PRN PRN Reason: nausea/vomiting Sertraline HCl (Sertraline Hcl 50 Mg Tablet) 50 mg PO DAILY [facility] Last Admin: 04/01/22 08:31 Dose: 50 mg Trazodone HCl (Trazodone Hcl 50 Mg Tablet) 50 mg PO BEDTIME PRN PRN Reason: Insomnia Allergies Allergies Allergy/AdvReac Type Severity Reaction Status Date / Time No Known Allergies Allergy Verified 03/27/22 19:43 Assessment & Plan Assessment & Plan (1) with 18 completed weeks gestation: Status: Acute Code(s): Z3A.18 - 18 weeks gestation of (2) PTSD (post-traumatic stress disorder): Status: Acute Code(s): F43.10 - Post-traumatic stress disorder, unspecified (3) Schizoaffective disorder: Status: Acute Code(s): F25.9 - Schizoaffective disorder, unspecified Plan 36 yo female, 18 weeks , admitted from respite with SI, SIBS, and CAH. No clear precipitant to sx exacerbation except pt was told by DCF that she needs to do a 30 day inpatient psychiatric program as a requirement for keeping her children. Plan: Continue current regime Consult Dr. Feldman regarding Collateral contacts with family, providers, DCF 03/29/22 Continue current regime Encourage milieu participation Pre- vitamin-will supply on 03/30 (consult with Dr. Feldman) 03/31/22 Improved today. Continue current plan. 04/01/22 Continue current plan of care. Patient educated on: therapeutic strategies Informed Consent: understands and further education needed Reason for contiued inpatient stay Substantial Risk for: inability to function and rapid decompensation Time Spent With Patient Time: Total time managing care of this patient today __15__ minutes.
[2022-04-01 20:20] VITALS: BP 116/55; PULSE 83; TEMP 36.9
[2022-04-01] MEDS: Prazosin HCL 1 MG CAPSULE PO (20:47)
[2022-04-01] MEDS: Acetaminophen 325 MG TABLET 650 MG PO (20:48)
[2022-04-02 06:00] VITALS: BP 120/56; PULSE 95; RESP 14; TEMP 36.4; O2SAT 97
[2022-04-02] MEDS: Folic Acid 1 MG TABLET 2 MG PO (08:13)
[2022-04-02] MEDS: levETIRAcetam 500 MG TABLET PO ×2 (08:14→18:46)
[2022-04-02] MEDS: ARIPiprazole 20 MG TABLET PO (08:14)
[2022-04-02] MEDS: Sertraline HCL 50 MG TABLET PO (08:14)
--- NOTE | 2022-04-02 14:09 | HO.PSYCHPN ---
Subjective Subjective Date of Service: 04/02/22 Reason For Visit: Psychosis/SI Subjective Notes: Conditional Voluntary Healthcare Proxy: No Guardianship: No Medical Problems Affecting Mental Status: No Interim History: Reports she is well, ready for discharge. Denies SI, HI, AH, VH. Denies fear, paranoia, reports sleep is improved Reports she is no longer afraid to be in hospital. Scratches on arm are healing and she has pruritis Foot (L) is improved and with less pain after resting Pt has decided she would like to return to home with , not to respite. States he concurs after his visit yesterday. We will plan discharge for 04/03/22. Medication Compliance: Yes Side effects from medications: No Attending Groups: Yes Review of Systems Acute medical concerns: No Medical Review of Systems: unchanged Mental Status Exam Mental Status Exam Patient Appearance: Appropriate Patient Orientation: Person, Place, Time and Situation Level of Consciousness: Alert Patient Behavior: Talkative, Cooperative and Good Eye Contact Mood Description: Appropriate Affect Description: Appropriate Patient Cognition Impaired: No Ability to Follow Directions: Good Speech Pattern: Spontaneous Speech and Soft-Spoken Memory Description: Episodic Impaired Thought Process: Intact Thought Content: positive for Intact and positive for Suicidal Ideation (denies) Depressive Symptoms: Low Self Esteem Judgement: Good Diagnostics Vital Signs (24Hr): Vital Signs - 24 hr 04/01/22 20:20 04/02/22 06:00 Temperature 98.5 F 97.6 F Pulse Rate 83 95 Respiratory Rate 14 Blood Pressure 116/55 L 120/56 L Pulse Oximetry 97 Oxygen Delivery Method Room Air BMI result Body Mass Index 39.4 Labs 03/27/22 19:52 03/27/22 19:52 Imaging Radiology Impressions: ITS Impressions Foot X-Ray 04/01/22 16:08 IMPRESSION: 1. No radiographic evidence of any acute osseous, articular or soft tissue abnormalities. 2. Enthesopathy at the insertional site of the Achilles tendon to the calcaneus. Medications Medications Current Medications Acetaminophen (Acetaminophen 325 Mg Tablet) 650 mg PO Q6H PRN PRN Reason: Headache/Pain Mild Scale (1-3) Last Admin: 04/01/22 20:48 Dose: 650 mg Al Hydroxide/Mg Hydroxide (Magnesium Hydrox/Alum Hydrox 30 Ml Oral.Susp) 30 ml PO Q6H PRN PRN Reason: Heartburn/Nausea Aripiprazole (Aripiprazole 20 Mg Tablet) 20 mg PO DAILY [facility] BEDS AT [facility] Last Admin: 04/02/22 08:14 Dose: 20 mg Docusate Sodium (Docusate Sodium 100 Mg Capsule) 100 mg PO BID PRN PRN Reason: constipation Folic Acid (Folic Acid 1 Mg Tablet) 2 mg PO DAILY [facility] 234 BEDS AT [facility] Last Admin: 04/02/22 08:13 Dose: 2 mg Haloperidol (Haloperidol 1 Mg Tablet) 2 mg PO BID PRN PRN Reason: Psychosis Last Admin: 03/30/22 09:51 Dose: 2 mg Levetiracetam (Levetiracetam 500 Mg Tablet) 500 mg PO BID [facility]CLUDE 234 BEDS AT [facility] Last Admin: 04/02/22 08:14 Dose: 500 mg Magnesium Hydroxide (Milk Of Magnesia 30 Ml Oral.Susp) 30 ml PO DAILY PRN PRN Reason: Constipation Non-Formulary Medication ( Advanced Multivitamin) 1 tab PO DAILY [facility] 234 BEDS AT [facility] Last Admin: 04/02/22 08:13 Dose: 1 tab Non-Formulary Medication ( Choline Tabs) 1 tab PO DAILY [facility] 234 BEDS AT [facility] Last Admin: 04/02/22 08:13 Dose: 1 tab Ondansetron HCl (Ondansetron Odt 4 Mg Tab.Rapdis) 4 mg TRANSLINGU Q6H PRN PRN Reason: nausea/vomiting Prazosin HCl (Prazosin Hcl 1 Mg Capsule) 1 mg PO BEDTIME [facility]S [facility]CLUDE 234 BEDS AT [facility]; Protocol Last Admin: 04/01/22 20:47 Dose: 1 mg Pyridoxine HCl (Pyridoxine Hcl (Vitamin B6) 50 Mg Tablet) 25 mg PO TID PRN PRN Reason: nausea/vomiting Sertraline HCl (Sertraline Hcl 50 Mg Tablet) 50 mg PO DAILY [facility] 234 BEDS AT [facility] Last Admin: 04/02/22 08:14 Dose: 50 mg Trazodone HCl (Trazodone Hcl 50 Mg Tablet) 50 mg PO BEDTIME PRN PRN Reason: Insomnia Allergies Allergies Allergy/AdvReac Type Severity Reaction Status Date / Time No Known Allergies Allergy Verified 03/27/22 19:43 Assessment & Plan Assessment & Plan (1) with 18 completed weeks gestation: Status: Acute Code(s): Z3A.18 - 18 weeks gestation of (2) PTSD (post-traumatic stress disorder): Status: Acute Code(s): F43.10 - Post-traumatic stress disorder, unspecified (3) Schizoaffective disorder: Status: Acute Code(s): F25.9 - Schizoaffective disorder, unspecified Plan 36 yo female, 18 weeks , admitted from respite with SI, SIBS, and CAH. No clear precipitant to sx exacerbation except pt was told by DCF that she needs to do a 30 day inpatient psychiatric program as a requirement for keeping her children. Plan: Continue current regime Consult Dr. Feldman regarding Collateral contacts with family, providers, DCF 03/29/22 Continue current regime Encourage milieu participation Pre-[facility]ron vitamin-will supply on 03/30 (consult with Dr. Feldman) 03/31/22 Improved today. Continue current plan. 04/02/22 Discharge 04/03/22 Patient educated on: medication risk/benefits and therapeutic strategies Informed Consent: understands and further education needed Reason for contiued inpatient stay Substantial Risk for: stable for discharge Time Spent With Patient Time: Total time managing care of this patient today _25___ minutes.
[2022-04-02 16:56] VITALS: BP 125/85; PULSE 93; TEMP 36.6; O2SAT 95
[2022-04-02] MEDS: Prazosin HCL 1 MG CAPSULE PO (18:46)
[2022-04-03] MEDS: Sertraline HCL 50 MG TABLET PO (08:33)
[2022-04-03] MEDS: levETIRAcetam 500 MG TABLET PO (08:33)
[2022-04-03] MEDS: ARIPiprazole 20 MG TABLET PO (08:33)
[2022-04-03] MEDS: Folic Acid 1 MG TABLET 2 MG PO (08:33)
[2022-04-03 09:36] VITALS: BP 121/63; PULSE 108; RESP 18; TEMP 36.7; O2SAT 97
--- NOTE | 2022-04-03 13:18 | PM.PSYDC ---
DS: Providers Provider Date of Service: 04/03/22 Date of admission: 03/27/22 23:20 Date of discharge: 04/03/22 Primary care physician: Unknown Physician Admitting clinician: Guerda Morton Attending physician on admission: Reyes Stephenson Consults: 03/27/22 23:34 Consult to Neurology Routine Consulting Provider: [facility] Reason for consultation: pt ; alternatives to Keppra? Attending physician on discharge: Reyes Stephenson Discharging clinician: Guerda Morton DS: Diagnosis Discharge Diagnosis (1) with 18 completed weeks gestation: Status: Acute (2) PTSD (post-traumatic stress disorder): Status: Acute (3) Schizoaffective disorder: Status: Acute DS: Medications Discharge Medications Home Medications: Home Medications Medication Instructions Recorded Confirmed folic acid 1 mg tablet 2 tab PO DAILY 03/27/22 03/27/22 levetiracetam 500 mg tablet 1 tab PO BID 03/27/22 03/27/22 ondansetron 4 mg disintegrating 1 tab PO Q6H PRN nausea/vomiting 03/27/22 03/27/22 tablet pyridoxine (vitamin B6) 25 mg 1 tab PO TID PRN nausea/vomiting 03/27/22 03/27/22 tablet (Vitamin B-6) Previous Rx's Medication Instructions Recorded Advanced Multivitamin 1 tab PO DAILY ##0 04/02/22 Choline Tabs 1 tab PO DAILY ##0 04/02/22 aripiprazole 10 mg tablet 20 mg PO DAILY #14 tabs 04/02/22 docusate sodium 100 mg capsule 1 cap PO BID PRN constipation #60 04/02/22 caps haloperidol 2 mg tablet 2 mg PO BID PRN Psychosis #30 tabs 04/02/22 prazosin 1 mg capsule 1 cap PO BEDTIME #14 caps 04/02/22 sertraline 50 mg tablet 1 tab PO DAILY #14 tabs 04/02/22 Mental Status Exam Mental Status Exam Patient Appearance: Appropriate Patient Orientation: Person, Place, Time and Situation Level of Consciousness: Alert Patient Behavior: Talkative, Cooperative and Good Eye Contact Mood Description: Appropriate Affect Description: Appropriate Patient Cognition Impaired: No Ability to Follow Directions: Good Speech Pattern: Spontaneous Speech and Soft-Spoken Memory Description: Episodic Impaired Thought Process: Intact Thought Content: positive for Intact and positive for Suicidal Ideation (denies) Depressive Symptoms: Low Self Esteem Judgement: Good Data Data Completed and Pending Completed studies during hospitalization [Text1]: 03/27/22 03/27/22 03/27/22 19:52 19:52 19:52 WBC RBC Hgb Hct MCV MCH MCHC RDW Plt Count MPV Immature Gran % (Auto) Neut % (Auto) Lymph % (Auto) [facility] % (Auto) Eos % (Auto) Baso % (Auto) Lymph # (Auto) [facility] # (Auto) Eos # (Auto) Baso # (Auto) Abs Immat Gran (auto) Absolute Neuts (auto) Absolute Nucleated RBC Nucleated RBC % (auto) Sodium 137 Potassium 4.2 Chloride 104 Carbon Dioxide 25 Anion Gap 12 BUN 11 Creatinine 0.60 Estim Creat Clear Calc 113.7 Estimated GFR > 60 Random Glucose 83 Estimat Average Glucose Hemoglobin A1c % Calcium 9.3 Magnesium 1.8 Total Bilirubin 0.2 AST 13 ALT 10 Alkaline Phosphatase 75 Total Protein 6.4 L Albumin 3.8 Triglycerides Cholesterol LDL Cholesterol, Calc HDL Cholesterol Urine Color Urine Appearance Urine pH Ur Specific [place] Urine Protein Urine Glucose (UA) Urine Ketones Urine Blood Urine Nitrite Ur Leukocyte Esterase Urine Test Salicylates < 5.0 L Urine Opiates Screen Urine Fentanyl Screen Acetaminophen < 17 Ur Barbiturates Screen Ur Phencyclidine Scrn Ur Amphetamines Screen U Benzodiazepines Scrn Urine Cocaine Screen U Marijuana (THC) Screen Ethyl Alcohol < 10 COVID-19 (NURIS) Negative COVID-19 Clin Com See Note 03/27/22 03/27/22 03/27/22 19:52 19:55 19:55 WBC 10.4 RBC 3.89 L Hgb 12.5 Hct 36.5 L MCV 93.8 MCH 32.1 MCHC 34.2 RDW 13.2 Plt Count 244 MPV 10.7 Immature Gran % (Auto) 0.5 H Neut % (Auto) 61.3 Lymph % (Auto) 29.8 [facility] % (Auto) 6.2 Eos % (Auto) 1.9 Baso % (Auto) 0.3 Lymph # (Auto) 3.1 [facility] # (Auto) 0.7 Eos # (Auto) 0.2 Baso # (Auto) 0.0 Abs Immat Gran (auto) 0.05 H Absolute Neuts (auto) 6.4 Absolute Nucleated RBC 0.000 Nucleated RBC % (auto) 0.0 Sodium Potassium Chloride Carbon Dioxide Anion Gap BUN Creatinine Estim Creat Clear Calc Estimated GFR Random Glucose Estimat Average Glucose Hemoglobin A1c % Calcium Magnesium Total Bilirubin AST ALT Alkaline Phosphatase Total Protein Albumin Triglycerides Cholesterol LDL Cholesterol, Calc HDL Cholesterol Urine Color Urine Appearance Urine pH Ur Specific [place] Urine Protein Urine Glucose (UA) Urine Ketones Urine Blood Urine Nitrite Ur Leukocyte Esterase Urine Test POSITIVE H Salicylates Urine Opiates Screen Not Detected Urine Fentanyl Screen Not Detected Acetaminophen Ur Barbiturates Screen Not Detected Ur Phencyclidine Scrn Not Detected Ur Amphetamines Screen Not Detected U Benzodiazepines Scrn Not Detected Urine Cocaine Screen Not Detected U Marijuana (THC) Screen Not Detected Ethyl Alcohol COVID-19 (NURIS) COVID-19 [employer] Com 03/27/22 03/28/22 03/28/22 19:55 08:30 08:30 WBC RBC Hgb Hct MCV MCH MCHC RDW Plt Count MPV Immature Gran % (Auto) Neut % (Auto) Lymph % (Auto) [facility] % (Auto) Eos % (Auto) Baso % (Auto) Lymph # (Auto) [facility] # (Auto) Eos # (Auto) Baso # (Auto) Abs Immat Gran (auto) Absolute Neuts (auto) Absolute Nucleated RBC Nucleated RBC % (auto) Sodium Potassium Chloride Carbon Dioxide Anion Gap BUN Creatinine Estim Creat Clear Calc Estimated GFR Random Glucose Estimat Average Glucose 94 Hemoglobin A1c % 4.9 Calcium Magnesium Total Bilirubin AST ALT Alkaline Phosphatase Total Protein Albumin Triglycerides 148 Cholesterol 263 LDL Cholesterol, Calc 180 HDL Cholesterol 54 Urine Color Yellow Urine Appearance Clear Urine pH 6.5 Ur Specific [place] 1.025 Urine Protein Negative Urine Glucose (UA) Negative Urine Ketones Negative Urine Blood Negative Urine Nitrite Negative Ur Leukocyte Esterase Negative Urine Test Salicylates Urine Opiates Screen Urine Fentanyl Screen Acetaminophen Ur Barbiturates Screen Ur Phencyclidine Scrn Ur Amphetamines Screen U Benzodiazepines Scrn Urine Cocaine Screen U Marijuana (THC) Screen Ethyl Alcohol COVID-19 (NURIS) COVID-19 [employer] Com Imaging Diagnostic Imaging Impressions Foot X-Ray 04/01/22 16:08 IMPRESSION: 1. No radiographic evidence of any acute osseous, articular or soft tissue abnormalities. 2. Enthesopathy at the insertional site of the Achilles tendon to the calcaneus. DS: Summary Hospital Course Hospital Course: Pt admitted to adult psychiatry from [facility] after a two week stay for SI and exacerbation in sx of PTSD and schizoaffective disorder. Regime was continued as pt is 18 weeks . Pt was anxious, however, worked with team and in milieu to stabilize. She worked in one to one and some of the group offerings. She will return home with her and return to [facility] for ongoing treatment. Time spent discussing smoking cessation with patient: 3 to 10 minutes Status at Discharge Functional status at discharge: independent ambulation Overall status at discharge: patient is back to baseline Time Spent with Patient Time attestation: Total time managing care of this patient today _35___ minutes. Time spent: Greater than 30 minutes Discharge Plan Discharge Anticipated Discharge Date/Time: 04/03/22 12:06 Patient Disposition: Home, Self-Care Discharge Diagnosis: PTSD Schizoaffective Disorder Seizure Disorder 18 wk Referrals: DCF Worker: Amanda Mcwilliams ([facility]) [Other] - 1 Week (Call to follow up as needed) DDS Director Of Assessing: Emily Marcos [Other] - 1 Week (Call to follow up for services) Ultrasound: [facility] ([place]) [Other] - 04/12/22 10:00 am Partial Hospitalization Program (PHP):[facility] [Other] - 04/13/22 11:00 am (PHP will call you the day prior to your appointment to confirm; you must confirm the appointment with them or they will cancel. They will also call you if they are able to get you in sooner. PHP Program Hours: Saturday through Saturday 8:45am-1:45pm PHP is in the building in the back of the Main Hospital at [facility]. Follow the silver signs with blue writing for Behavioral Health -drive right past the Emergency Room and take a left at the stop sign at the top of the small hill. The entrance is from [address] (it is the big concrete building attached to the red trailer). ) Psychiatric Prescriber: Reji Almendarez ([facility]) [Other] - 04/05/22 4:00 pm (In person at the office) Paola Sagastume CNP [Nurse Practitioner] - 04/04/22 10:00 am (In office ) Discharge Medications: New Advanced Multivitamin 1 tab PO DAILY Qty: 0 0RF Choline Tabs 1 tab PO DAILY Qty: 0 0RF Continued pyridoxine (vitamin B6) [Vitamin B-6] 25 mg tablet 1 tab PO TID PRN (Reason: nausea/vomiting) folic acid 1 mg tablet 2 tab PO DAILY levetiracetam 500 mg tablet 1 tab PO BID ondansetron 4 mg tablet,disintegrating 1 tab PO Q6H PRN (Reason: nausea/vomiting) prazosin 1 mg capsule 1 cap PO BEDTIME Qty: 14 1RF docusate sodium 100 mg capsule 1 cap PO BID PRN (Reason: constipation) Qty: 60 1RF haloperidol 2 mg Tablet 2 mg PO BID PRN (Reason: Psychosis) Qty: 30 1RF sertraline 50 mg tablet 1 tab PO DAILY Qty: 14 1RF aripiprazole 10 mg tablet 20 mg PO DAILY Qty: 14 1RF Discontinued lorazepam 0.5 mg tablet 1 tab PO BID Discharge Orders: Discharge Order (Routine); Ordered 04/03/22 Ordered By: Guerda Morton Diet: Advance to usual diet Activity on Discharge: As tolerated Stand Alone Forms: Patient Portal Discharge page, Community Support Care Plan Goals: Maintain mood and safe behavior Take medications as directed Practice coping skills Continue to follow up with out patient providers OB follow up Health Concerns: Stable mood and behaviors OB follow up Plan of Treatment: Follow up with all out patient provider, medical, OB, neurological and psychiatric Take medications as indicated. Call and or return as needed Assessment: Pt interviewed prior to discharge and found to be fully oriented and without any SI/HI. Pt has insight and demonstrates good judgment in terms of wanting to pursue treatment Pt is not in imminent risk of harm to self or others and has a safety plan that includes presenting to the closest ER or calling 911 if feeling unsafe. Pt has been observed closely by nursing staff throughout her admission Pt has not engaged in any behaviors that suggest dangerousness to self or others and has demonstrated appropriate behaviors and impulse control. Discharge Date/Time: 04/03/22 14:00
--- NOTE | 2022-04-03 14:06 | PC.NURSE ---
Patient easily engaged. Reports mood is happy , endorses anxiety related to discharge although ready to go . Denies depression or sadness, denies SI/HI. Denies urges to self harm. Denies A/V hallucinations, no overt psychosis or expressed delusions. Plans to return to home accompanied by . All belongings taken with patient. Discharge paperwork reviewed including follow up appointments, and medications. Patient reports understanding and states she gets help with medication administration. Crisis numbers provided to christi
== END 2022-04-03 14:00 | disposition home or self-care (01) | DRG 566 ==
LOC: HO.ED 21:41 → HO.PM5 23:26
PROVIDERS: Admitting Provider Psychiatry & Neurology Psychiatry; Emergency Provider Internal Medicine; Visit Provider Clinical Nurse Specialist Psychiatric/Mental Health, Adult
DX: O99.342 Other mental disorders complicating pregnancy, second trimester (principal); R45.851 Suicidal ideations; F25.9 Schizoaffective disorder, unspecified; O99.352 Diseases of the nervous system complicating pregnancy, second trimester; F43.10 Post-traumatic stress disorder, unspecified; Z3A.18 18 weeks gestation of pregnancy; G40.909 Epilepsy, unspecified, not intractable, without status epilepticus; Z20.822 Contact with and (suspected) exposure to COVID-19; Z79.899 Other long term (current) drug therapy
CPT/HCPCS: 36415; 73620; 80053; 80061; 80143; 80179; 80307; 81003; 81025; 82077; 83036; 83735; 85025; 87635; 93005; 99285

== ENCOUNTER 2022-08-01 17:55 | Inpatient (IN) | payer OTHER, SELFPAY ==
--- NOTE | 2022-08-01 | ECG_ITS ---
Test Reason : med clear Blood Pressure : / mmHG Vent. Rate : 060 BPM Atrial Rate : 060 BPM P-R Int : 144 ms QRS Dur : 078 ms QT Int : 422 ms P-R-T Axes : 042 023 033 degrees QTc Int : 422 ms Normal sinus rhythm Normal ECG When compared with ECG of 27-MAR-2022 20:51, No significant change was found Referred By: Donte Oliver Electronically Signed By:KARUNA LOPES
--- NOTE | ~2022-08-01 | CT_ITS ---
EXAMINATION: CT ABDOMEN AND PELVIS WITHOUT CONTRAST CLINICAL INFORMATION: Left lower quadrant pain. Intractable vomiting. COMPARISON: None available. TECHNIQUE: Multidetector volumetric imaging was performed from the superior aspect of the liver through the pubic symphysis. Sagittal and coronal reformatted images were obtained on the technologist's workstation. This CT examination was performed using dose optimization techniques as appropriate, variously including the following: *Automated exposure control *Adjustment of mA and/or kV according to patient size (this includes techniques or standardized protocols for targeted exams where dose is matched to indication/reason for exam; i.e. extremities or head) *Use of iterative reconstruction technique DLP: 459 mGy-cm FINDINGS: LUNG BASES: The visualized lung bases are unremarkable. LIVER, GALLBLADDER, AND BILIARY TREE: The liver is normal in size, shape, and attenuation. No focal hepatic lesion or biliary ductal dilatation is present. The gallbladder is unremarkable with no evidence of radiopaque gallstones, gallbladder wall thickening, or obvious pericholecystic inflammatory changes. PANCREAS: Unremarkable. SPLEEN: Unremarkable. ADRENAL GLANDS: Unremarkable. KIDNEYS AND URETERS: The kidneys are normal in size, shape, and attenuation. No hydronephrosis, hydroureter, or calculi seen. No perinephric stranding. BLADDER: Unremarkable. GASTROINTESTINAL TRACT: There is moderate scattered stool seen throughout the colon without distention. The small bowel loops are normal caliber. Appendix is not visualized. There is no inflammatory process in the abdomen or pelvis. There is no free fluid. The stomach is nondistended. ABDOMINAL WALL: A small umbilical hernia containing fat is noted. LYMPH NODES: Normal. VASCULAR: Unremarkable. PELVIC VISCERA: The uterus is anteverted and appears unremarkable. Small shotty lymph nodes are seen inguinal regions. OSSEOUS STRUCTURES: No aggressive lytic or sclerotic process seen. CT/CT abdomen pelvis wo IV con IMPRESSION: 1. No acute intra-abdominal process seen. 2. Mild constipation. Fleischner guidelines were followed.
--- NOTE | 2022-08-01 18:06 | ED.PSYCH ---
HPI - Psych General Chief Complaint: Psychiatric Symptoms Stated Complaint: SI, SEC 12 Source: patient Mode of arrival: ambulatory Limitations: no limitations History of Present Illness HPI Narrative: 36-year-old female history of bipolar disorder, major depression coming into the emergency department via ambulance with police and EMS on a [address] from [facility], according to patient she started hearing voices and ran out into traffic hoping to get hit by a car however she thought about her children and then stopped. She tells me voices are telling her to harm herself. No visual hallucinations. No tactile hallucinations. Denies homicidal ideation. Denies drugs, alcohol. Current daily tobacco smoker. Patient denies medical complaints Related Data Home Medications Medication Instructions Recorded Confirmed folic acid 1 mg tablet 2 tab PO DAILY 03/27/22 03/27/22 levetiracetam 500 mg tablet 1 tab PO BID 03/27/22 03/27/22 ondansetron 4 mg disintegrating 1 tab PO Q6H PRN nausea/vomiting 03/27/22 03/27/22 tablet pyridoxine (vitamin B6) 25 mg 1 tab PO TID PRN nausea/vomiting 03/27/22 03/27/22 tablet (Vitamin B-6) Previous Rx's Medication Instructions Recorded Advanced Multivitamin 1 tab PO DAILY ##0 04/02/22 Choline Tabs 1 tab PO DAILY ##0 04/02/22 aripiprazole 10 mg tablet 20 mg PO DAILY #14 tabs 04/02/22 docusate sodium 100 mg capsule 1 cap PO BID PRN constipation #60 04/02/22 caps haloperidol 2 mg tablet 2 mg PO BID PRN Psychosis #30 tabs 04/02/22 prazosin 1 mg capsule 1 cap PO BEDTIME #14 caps 04/02/22 sertraline 50 mg tablet 1 tab PO DAILY #14 tabs 04/02/22 cefuroxime axetil 250 mg tablet 250 mg PO BID 5 days #10 tabs 08/01/22 Allergies Allergy/AdvReac Type Severity Reaction Status Date / Time No Known Allergies Allergy Verified 08/01/22 18:28 Review of Systems Review of Systems: Constitutional : No Weight loss, No Fever, No Chills, No Fatigue, No Malaise ENT/Mouth : No sore throat, No Rhinorrhea Eyes: No Eye Pain, No Swelling, No Redness Cardiovascular : No Chest Pain, No SOB, No Dyspnea on Exertion, No Orthopnea, No Edema, No Palpitations Respiratory : No Cough, No Sputum, No Wheezing Gastrointestinal : No Nausea, No Vomiting, No Diarrhea, No Constipation, No abdominal Pain, No Hematochezia, No Melena Genitourinary : No Dysuria, No Urinary Frequency, No Hematuria, Musculoskeletal : No joint pain, No Myalgias, No Joint Swelling Skin : No Skin Lesions, No rash Neuro : No Weakness, No Numbness, No Dizziness, No Headache Psych : + Anxiety/Panic, + Depression, + Si, No HI All other systems reviewed and are negative Yes all other systems are reviewed and are negative [facility] Past Medical History Attestation statement: The following information was validated with the patient. Source: old records reviewed and nursing notes reviewed Medical History PTSD (post-traumatic stress disorder) Schizoaffective disorder Social History Social History Household Members: Spouse and Family Housing: House Do you presently have visiting nurse or other home services: No Patient Tobacco Use Status: Never used Tobacco e-Cigarette/Vaping Use: Never Used Second Hand Smoke Exposure: No Advance Directives: No Advance Directives Information Provided: No service: No Sexual orientation: Straight/Heterosexual Physical Exam Vital Signs: Vital Signs: Last Vital Signs Temp 98.4 F 08/01/22 18:13 Pulse 57 08/01/22 18:13 Resp 18 08/01/22 18:13 BP 137/79 08/01/22 18:13 Pulse Ox 98 08/01/22 18:13 O2 Del Method Room Air 08/01/22 18:13 BMI result Body Mass Index 23.0 vss Appearance: Alert.? Oriented X3.? No acute distress.? Head: Normocephalic, atraumatic, no step-offs or deformities Eyes: Pupils equal, round and reactive to light.? CVS: Normal heart rate and rhythm.? Pulses normal.? Respiratory: No respiratory distress.? Breath sounds normal.? Abdomen: Soft and nontender.? Skin: Skin warm and dry.? Normal skin color.? Normal skin turgor.? Extremities: No lower extremity edema.? No calf ttp. 5/5 strength to bilateral upper and lower extremities Neuro: Oriented X 3.? No motor deficit.? No sensory deficit. CN 2-12 intact Course Reevaluation(s) Reevaluation #1: Patient's CBC with slight leukocytosis, likely acute phase from agitation/psych, unlikely infection. Chemistry unremarkable. Patient's urine with a UTI, will start on p.o. Ceftin. Urine toxicology positive for marijuana, ethanol negative, salicylates acetaminophen negative. COVID negative. At this time or place and observation to allow more time to be evaluated by care team. At time observation was started common cooperative no acute distress will continue to monitor Time: 20:20 Medical Decision Making Medical Decision Making [facility] Narrative: 1800 36-year-old female presents with suicidal ideation and command auditory hallucinations for the past day. Physical exam benign. Likely PTSD with schizoaffective disorder. Unlikely metabolic derangements. Plan medical clearance evaluation by the care team Differential Diagnosis Differential Diagnoses: The differential diagnosis associated with the presentation includes Likely PTSD with schizoaffective disorder. Unlikely metabolic derangements. Admission/Observation Consideration of admission/observation: Escalation of care including admission/observation considered Lab Data [facility] Lab Attestation statement: I reviewed the patient's lab results. 08/01/22 19:29 08/01/22 19:29 Labs: Lab Results 08/01/22 08/01/22 08/01/22 Range/Units 18:58 18:58 18:58 WBC (4.8-10.8) X10*3/uL RBC (4.20-5.50) X10*6/uL Hgb (12.0-16.0) g/dl Hct (37.0-47.0) % MCV (80.0-98.0) fL MCH (27.0-33.0) pg MCHC (31.0-35.0) g/dl RDW (11.0-16.0) % Plt Count (160-400) X10*3/uL MPV (9.4-12.3) fL Immature Gran % (Auto) (0.0-0.4) % Neut % (Auto) (45-73) % Lymph % (Auto) (20-40) % [place] % (Auto) (2-11) % Eos % (Auto) (0-4) % Baso % (Auto) (0-2) % Lymph # (Auto) (1.2-4.9) X10*3/uL [place] # (Auto) (0.1-1.2) X10*3/uL Eos # (Auto) (0.0-0.4) X10*3/uL Baso # (Auto) (0.0-0.2) X10*3/uL Abs Immat Gran (auto) (0.00-0.03) X10*3/uL Absolute Neuts (auto) (2.0-8.3) x10*3/uL Absolute Nucleated RBC (0.0-0.012) X10*3/uL Nucleated RBC % (auto) (0.0-0.2) /100WBC Sodium (135-145) mmol/L Potassium (3.3-5.1) mmol/L Chloride (96-108) mmol/L Carbon Dioxide (22-29) mmol/L Anion Gap (12-20) BUN (9-16) mg/dL Creatinine (0.5-1.4) mg/dL Estim Creat Clear Calc Estimated GFR Random Glucose (60-115) mg/dL Calcium (8.4-10.2) mg/dL Magnesium (1.6-2.6) mg/dL Total Bilirubin (0.0-1.0) mg/dL AST (5-31) U/L ALT (0-31) U/L Alkaline Phosphatase (39-117) U/L Total Protein (6.5-8.0) g/dL Albumin (3.5-5.0) g/dL Urine Color Yellow Urine Appearance Turbid Urine pH 6.0 (5.0-9.0) Ur Specific [place] 1.025 (1.005-1.025) Urine Protein 100 (2+) H (Neg-Trace) mg/dL Urine Glucose (UA) Negative (Negative) mg/dL Urine Ketones Negative (Negative) mg/dL Urine Blood Moderate (2+) H (Negative) Urine Nitrite Negative (Negative) Ur Leukocyte Esterase Trace H (Negative) Urine RBC 6-10 H (0-2) /HPF Urine WBC >50 H (0-5) /HPF Ur Squamous Epith Cells >20 (0-2) /HPF Urine Bacteria 4+ (None Seen) Hyaline Casts 0-2 (0-2) /LPF Urine Test NEGATIVE (NEGATIVE) Urine Opiates Screen (Not Detect) Urine Fentanyl Screen (Not Detect) Ur Barbiturates Screen (Not Detect) Ur Phencyclidine Scrn (Not Detect) Ur Amphetamines Screen (Not Detect) U Benzodiazepines Scrn (Not Detect) Urine Cocaine Screen (Not Detect) U Marijuana (THC) Screen (Not Detect) Ethyl Alcohol mg/dL COVID-19 (NURIS) Negative (Negative) COVID-19 Clin Com See Note 08/01/22 08/01/22 08/01/22 Range/Units 18:58 19:29 19:29 WBC 13.5 H (4.8-10.8) X10*3/uL RBC 4.35 (4.20-5.50) X10*6/uL Hgb 12.8 (12.0-16.0) g/dl Hct 38.6 (37.0-47.0) % MCV 88.7 (80.0-98.0) fL MCH 29.4 (27.0-33.0) pg MCHC 33.2 (31.0-35.0) g/dl RDW 14.6 (11.0-16.0) % Plt Count 281 (160-400) X10*3/uL MPV 11.2 (9.4-12.3) fL Immature Gran % (Auto) 0.3 (0.0-0.4) % Neut % (Auto) 67.7 (45-73) % Lymph % (Auto) 25.9 (20-40) % [place] % (Auto) 4.8 (2-11) % Eos % (Auto) 1.0 (0-4) % Baso % (Auto) 0.3 (0-2) % Lymph # (Auto) 3.5 (1.2-4.9) X10*3/uL [place] # (Auto) 0.7 (0.1-1.2) X10*3/uL Eos # (Auto) 0.1 (0.0-0.4) X10*3/uL Baso # (Auto) 0.0 (0.0-0.2) X10*3/uL Abs Immat Gran (auto) 0.04 H (0.00-0.03) X10*3/uL Absolute Neuts (auto) 9.2 H (2.0-8.3) x10*3/uL Absolute Nucleated RBC 0.000 (0.0-0.012) X10*3/uL Nucleated RBC % (auto) 0.0 (0.0-0.2) /100WBC Sodium 141 (135-145) mmol/L Potassium 4.1 (3.3-5.1) mmol/L Chloride 108 (96-108) mmol/L Carbon Dioxide 25 (22-29) mmol/L Anion Gap 12 (12-20) BUN 10 (9-16) mg/dL Creatinine 0.62 (0.5-1.4) mg/dL Estim Creat Clear Calc 105.7 Estimated GFR > 60 Random Glucose 86 (60-115) mg/dL Calcium 8.9 (8.4-10.2) mg/dL Magnesium 1.8 (1.6-2.6) mg/dL Total Bilirubin 0.4 (0.0-1.0) mg/dL AST 15 (5-31) U/L ALT 17 (0-31) U/L Alkaline Phosphatase 114 (39-117) U/L Total Protein 6.3 L (6.5-8.0) g/dL Albumin 3.9 (3.5-5.0) g/dL Urine Color Urine Appearance Urine pH (5.0-9.0) Ur Specific [place] (1.005-1.025) Urine Protein (Neg-Trace) mg/dL Urine Glucose (UA) (Negative) mg/dL Urine Ketones (Negative) mg/dL Urine Blood (Negative) Urine Nitrite (Negative) Ur Leukocyte Esterase (Negative) Urine RBC (0-2) /HPF Urine WBC (0-5) /HPF Ur Squamous Epith Cells (0-2) /HPF Urine Bacteria (None Seen) Hyaline Casts (0-2) /LPF Urine Test (NEGATIVE) Urine Opiates Screen Not Detected (Not Detect) Urine Fentanyl Screen Not Detected (Not Detect) Ur Barbiturates Screen Not Detected (Not Detect) Ur Phencyclidine Scrn Not Detected (Not Detect) Ur Amphetamines Screen Not Detected (Not Detect) U Benzodiazepines Scrn Not Detected (Not Detect) Urine Cocaine Screen Not Detected (Not Detect) U Marijuana (THC) Screen POSITIVE H (Not Detect) Ethyl Alcohol < 10 mg/dL COVID-19 (NURIS) (Negative) COVID-19 Clin Com Core Measures AMI core measures followed: Yes Measure exclusions: not indicated Critical Care Time Critical Care Time Critical Care Time: No Discharge Plan Discharge Clinical Impression: Schizoaffective disorder, UTI (urinary tract infection) Patient Disposition: Home, Self-Care Prescriptions: New cefuroxime axetil 250 mg tablet 250 mg PO BID 5 Days Qty: 10 0RF No Action pyridoxine (vitamin B6) [Vitamin B-6] 25 mg tablet 1 tab PO TID PRN (Reason: nausea/vomiting) folic acid 1 mg tablet 2 tab PO DAILY levetiracetam 500 mg tablet 1 tab PO BID ondansetron 4 mg tablet,disintegrating 1 tab PO Q6H PRN (Reason: nausea/vomiting) Advanced Multivitamin 1 tab PO DAILY Qty: 0 0RF Choline Tabs 1 tab PO DAILY Qty: 0 0RF prazosin 1 mg capsule 1 cap PO BEDTIME Qty: 14 1RF docusate sodium 100 mg capsule 1 cap PO BID PRN (Reason: constipation) Qty: 60 1RF haloperidol 2 mg Tablet 2 mg PO BID PRN (Reason: Psychosis) Qty: 30 1RF sertraline 50 mg tablet 1 tab PO DAILY Qty: 14 1RF aripiprazole 10 mg tablet 20 mg PO DAILY Qty: 14 1RF
[2022-08-01 18:13] VITALS: BP 130/84; BP 137/79; PULSE 57; PULSE 65; RESP 18; TEMP 36.9; O2SAT 98; BMI 23.0
--- NOTE | 2022-08-01 18:28 | PC.NURSE ---
pt sectioned. pt a+o, vss, denies pain. pt reports that she was hearing voices telling her to walk into traffic, she thought about it but did not act on thoughts or do what the voices told her because she knows it's wrong. denies si/hi at this moment. but did have si earlier today. pt gave to premature baby boy in June, baby in NICU. she visited him yesterday. pt calm/cooperative, no complaints.
[2022-08-01 19:16] LABS: UPreg QC Valid YES; Urine Pregnancy NEGATIVE (NEGATIVE)
[2022-08-01 19:17] LABS: Appearance Urine Turbid; Color Urine Yellow; Glucose Urine UA Negative (Negative); Leukocyte Esterase Urine Trace (Negative); Nitrite Urine Negative (Negative); Specific Gravity - Urine 1.025 (1.005-1.025); UMIC TRIGGER UACC YES; Urine Blood Moderate (2+) (Negative); Urine Ketones Negative (Negative); Urine Protein 100 (2+) mg/dL (Neg-Trace)
[2022-08-01 19:19] LABS: Amphetamine Screen Urine Not Detected (Not Detect); Barbiturates, Urine Not Detected (Not Detect); Benzodiazepines Screen Urine Not Detected (Not Detect); Cannabinoid Screen Urine POSITIVE (Not Detect); Cocaine Screen Urine Not Detected (Not Detect); Fentanyl, urine Not Detected (Not Detect); Opiate Screen Urine Not Detected (Not Detect); Phencyclidine Screen Urine Not Detected (Not Detect)
[2022-08-01 19:22] LABS: COVID-19 Test Negative (Negative); IDNOW Serial# BCCEAD1C
[2022-08-01 19:29] LABS: Bacteria Urine 4+ (None Seen); Hyaline Casts Urine 0-2 /LPF (0-2); Squamous Epithelial Cell Urine >20 /HPF (0-2); UACC Culture Trigger YES; WBC Urine >50 /HPF (0-5)
[2022-08-01 19:35] LABS: MANUAL DIFF FLAG NO
[2022-08-01 19:38] LABS: Basophils Percent Auto 0.3 % (0-2); Eosinophils Absolute Auto 0.1 X10*3/uL (0.0-0.4); Hematocrit 38.6 % (37.0-47.0); Hemoglobin 12.8 g/dl (12.0-16.0); Imm Gran Abs Auto 0.04 X10*3/uL (0.00-0.03); Imm Gran Pct Auto 0.3 % (0.0-0.4); Lymphocytes Absolute Auto 3.5 X10*3/uL (1.2-4.9); Lymphocytes Percent Auto 25.9 % (20-40); Mean Corpuscular HGB Conc 33.2 g/dl (31.0-35.0); Mean Corpuscular Hemoglobin 29.4 pg (27.0-33.0); Mean Corpuscular Volume 88.7 fL (80.0-98.0); Mean Platelet Volume 11.2 fL (9.4-12.3); Monocytes Absolute Auto 0.7 X10*3/uL (0.1-1.2); Monocytes Percent Auto 4.8 % (2-11); Neutrophils Absolute Auto 9.2 x10*3/uL (2.0-8.3); Neutrophils Percent Auto 67.7 % (45-73); Platelet Count 281 X10*3/uL (160-400); Red Blood Count 4.35 X10*6/uL (4.20-5.50); Red Cell Distribution Width 14.6 % (11.0-16.0); White Blood Count 13.5 X10*3/uL (4.8-10.8)
[2022-08-01 20:06] LABS: Anion Gap 12 (12-20)
[2022-08-01 20:11] LABS: Alanine Aminotransferase 17 U/L (0-31); Albumin Level 3.9 g/dL (3.5-5.0); Alkaline Phosphatase 114 U/L (39-117); Aspartate Amino Transferase 15 U/L (5-31); Bilirubin Total 0.4 mg/dL (0.0-1.0); Blood Urea Nitrogen 10 mg/dL (9-16); Calcium 8.9 mg/dL (8.4-10.2); Carbon Dioxide 25 mmol/L (22-29); Chloride 108 mmol/L (96-108); Creatinine Clr Calc Pharmacy 105.7; Estimated Glomerular Filt Rate > 60; Ethanol < 10 mg/dL; Glucose Random 86 mg/dL (60-115); Magnesium 1.8 mg/dL (1.6-2.6); Potassium 4.1 mmol/L (3.3-5.1); Sodium 141 mmol/L (135-145); Total Protein 6.3 g/dL (6.5-8.0)
[2022-08-01 20:30] LABS: Acetaminophen LAB < 17 mcg/mL (<30); Salicylate < 5.0 mg/dL (15-30)
[2022-08-01 23:02] VITALS: BP 135/73; PULSE 63; TEMP 36.4; O2SAT 96; BMI 27.0
[2022-08-01] MEDS: LORazepam 0.5 MG TABLET PO (23:27)
--- NOTE | 2022-08-02 06:22 | PC.ADMIT ---
patient arrived on 08/01 from the POD. nurse to nurse and collateral information obtained prior to admission. legal:CV. dx: schizoaffective d/o. has providers with [facility] staff but not current providers and per crisis assessment patient is not engaged on OP therapy due to lack of providers. patient with multiple hospitalizations at [facility]. presents as preoccupied. reports + AH telling her to ''run into traffic'' endorses history of self harm and presents with superficial scrapes on her R arm from scratching herself. . areas cleaned and simple dsd applied. Medication reconciliation was reported to have been completed in the ER but this does not appear so as patient endorses history of seizures (last in March 2022) has keppra in pharmacy history but was not ordered. patient is a poor historian about medications. patient is s/p child 4 weeks ago and infant currently remains hospitalized in NICU at [facility] due to low weight. oriented to unit. safety tool, treatment plan initiated.
--- NOTE | 2022-08-02 08:49 | PC.NURSE ---
At this time patient declines nicotine replacement
[2022-08-02 09:00] VITALS: BP 131/74; PULSE 64; RESP 16; TEMP 36.7; O2SAT 96
[2022-08-02 09:37] LABS: Estimated Average Glucose 97 mg/dL
[2022-08-02 09:44] LABS: Cholesterol 179 mg/dL; HDL Cholesterol 43 mg/dL; LDL Cholesterol Calculated 111 mg/dl; Magnesium 1.8 mg/dL (1.6-2.6); Triglycerides 128 mg/dL
[2022-08-02 10:13] LABS: Folate 18.3 ng/mL (> or = 4.0); Free T4 (Free Thyroxine) 1.02 ng/dL (0.71-1.85); Thyroid Stimulating Hormone 1.07 uIU/mL (0.32-4.0); Vitamin B12 536 pg/mL (200-900)
[2022-08-02 11:47] VITALS: BMI 26.9
[2022-08-02] MEDS: HaloperidoL 5 MG TABLET PO (12:54)
[2022-08-02] MEDS: ARIPiprazole 20 MG TABLET PO (12:54)
[2022-08-02] MEDS: Sertraline HCL 50 MG TABLET 150 MG PO (12:54)
[2022-08-02] MEDS: levETIRAcetam 500 MG TABLET PO ×2 (13:00→22:24)
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
[2022-08-02 19:40] VITALS: BP 112/60; PULSE 75; RESP 16; TEMP 36.9; O2SAT 97
[2022-08-02] MEDS: Prazosin HCL 1 MG CAPSULE 2 MG PO (22:23)
[2022-08-03 06:00] VITALS: BP 118/78; PULSE 77; RESP 16; TEMP 36.3; O2SAT 97
[2022-08-03] MEDS: ARIPiprazole 20 MG TABLET PO (08:35)
[2022-08-03] MEDS: levETIRAcetam 500 MG TABLET PO ×2 (08:35→20:14)
[2022-08-03] MEDS: Sertraline HCL 50 MG TABLET 150 MG PO (08:35)
--- NOTE | 2022-08-03 13:07 | HO.PSYCHPN ---
Subjective Subjective Date of Service: 08/03/22 Reason For Visit: SI, SEC 12 Interim History: calm, cooperative. acknowledges behaviors of yesterday. feeling better having restarted medications. feels the increased dose of haldol PRN is working well. slept well with no nightmares last NOC. per staff, 3-day up 08/07. anxious and depressed to be in the hospital. period of agitation yesterday. med compliant. calm on eves. slept well overnight. Mental Status Exam Mental Status Exam Narrative: calm, cooperative. no PMA/PMR. speech nml rate, amount, loudness, tone, latency. thoughts linear and questionably logical. affect constricted, normo-intense, non-labile. denies SI/SIBI/HI/AVH. Diagnostics Vital Signs (24Hr): Vital Signs - 24 hr 08/02/22 19:40 08/03/22 06:00 Temperature 98.4 F 97.3 F Pulse Rate 75 77 Respiratory Rate 16 16 Blood Pressure 112/60 118/78 Pulse Oximetry 97 97 Oxygen Delivery Method Room Air Room Air BMI result Body Mass Index 26.9 Labs 08/01/22 19:29 08/01/22 19:29 Labs: Laboratory Results - last 48 hr 08/01/22 08/01/22 08/01/22 18:58 18:58 18:58 WBC RBC Hgb Hct MCV MCH MCHC RDW Plt Count MPV Immature Gran % (Auto) Neut % (Auto) Lymph % (Auto) [place] % (Auto) Eos % (Auto) Baso % (Auto) Lymph # (Auto) [place] # (Auto) Eos # (Auto) Baso # (Auto) Abs Immat Gran (auto) Absolute Neuts (auto) Absolute Nucleated RBC Nucleated RBC % (auto) Sodium Potassium Chloride Carbon Dioxide Anion Gap BUN Creatinine Estim Creat Clear Calc Estimated GFR Random Glucose Estimat Average Glucose Hemoglobin A1c % Calcium Magnesium Total Bilirubin AST ALT Alkaline Phosphatase Total Protein Albumin Triglycerides Cholesterol LDL Cholesterol, Calc HDL Cholesterol Vitamin B12 Folate TSH Free T4 Urine Color Yellow Urine Appearance Turbid Urine pH 6.0 Ur Specific [place] 1.025 Urine Protein 100 (2+) H Urine Glucose (UA) Negative Urine Ketones Negative Urine Blood Moderate (2+) H Urine Nitrite Negative Ur Leukocyte Esterase Trace H Urine RBC 6-10 H Urine WBC >50 H Ur Squamous Epith Cells >20 Urine Bacteria 4+ Hyaline Casts 0-2 Urine Test NEGATIVE Salicylates Urine Opiates Screen Urine Fentanyl Screen Acetaminophen Ur Barbiturates Screen Ur Phencyclidine Scrn Ur Amphetamines Screen U Benzodiazepines Scrn Urine Cocaine Screen U Marijuana (THC) Screen Ethyl Alcohol COVID-19 (NURIS) Negative COVID-19 Clin Com See Note 08/01/22 08/01/22 08/01/22 18:58 19:29 19:29 WBC 13.5 H RBC 4.35 Hgb 12.8 Hct 38.6 MCV 88.7 MCH 29.4 MCHC 33.2 RDW 14.6 Plt Count 281 MPV 11.2 Immature Gran % (Auto) 0.3 Neut % (Auto) 67.7 Lymph % (Auto) 25.9 [place] % (Auto) 4.8 Eos % (Auto) 1.0 Baso % (Auto) 0.3 Lymph # (Auto) 3.5 [place] # (Auto) 0.7 Eos # (Auto) 0.1 Baso # (Auto) 0.0 Abs Immat Gran (auto) 0.04 H Absolute Neuts (auto) 9.2 H Absolute Nucleated RBC 0.000 Nucleated RBC % (auto) 0.0 Sodium 141 Potassium 4.1 Chloride 108 Carbon Dioxide 25 Anion Gap 12 BUN 10 Creatinine 0.62 Estim Creat Clear Calc 105.7 Estimated GFR > 60 Random Glucose 86 Estimat Average Glucose Hemoglobin A1c % Calcium 8.9 Magnesium 1.8 Total Bilirubin 0.4 AST 15 ALT 17 Alkaline Phosphatase 114 Total Protein 6.3 L Albumin 3.9 Triglycerides Cholesterol LDL Cholesterol, Calc HDL Cholesterol Vitamin B12 Folate TSH Free T4 Urine Color Urine Appearance Urine pH Ur Specific [place] Urine Protein Urine Glucose (UA) Urine Ketones Urine Blood Urine Nitrite Ur Leukocyte Esterase Urine RBC Urine WBC Ur Squamous Epith Cells Urine Bacteria Hyaline Casts Urine Test Salicylates < 5.0 L Urine Opiates Screen Not Detected Urine Fentanyl Screen Not Detected Acetaminophen < 17 Ur Barbiturates Screen Not Detected Ur Phencyclidine Scrn Not Detected Ur Amphetamines Screen Not Detected U Benzodiazepines Scrn Not Detected Urine Cocaine Screen Not Detected U Marijuana (THC) Screen POSITIVE H Ethyl Alcohol < 10 COVID-19 (NURIS) COVID-19 Clin Com 08/02/22 08/02/22 08:53 08:53 WBC RBC Hgb Hct MCV MCH MCHC RDW Plt Count MPV Immature Gran % (Auto) Neut % (Auto) Lymph % (Auto) [place] % (Auto) Eos % (Auto) Baso % (Auto) Lymph # (Auto) [place] # (Auto) Eos # (Auto) Baso # (Auto) Abs Immat Gran (auto) Absolute Neuts (auto) Absolute Nucleated RBC Nucleated RBC % (auto) Sodium Potassium Chloride Carbon Dioxide Anion Gap BUN Creatinine Estim Creat Clear Calc Estimated GFR Random Glucose Estimat Average Glucose 97 Hemoglobin A1c % 5.0 Calcium Magnesium 1.8 Total Bilirubin AST ALT Alkaline Phosphatase Total Protein Albumin Triglycerides 128 Cholesterol 179 LDL Cholesterol, Calc 111 HDL Cholesterol 43 Vitamin B12 536 Folate 18.3 TSH 1.07 Free T4 1.02 Urine Color Urine Appearance Urine pH Ur Specific [place] Urine Protein Urine Glucose (UA) Urine Ketones Urine Blood Urine Nitrite Ur Leukocyte Esterase Urine RBC Urine WBC Ur Squamous Epith Cells Urine Bacteria Hyaline Casts Urine Test Salicylates Urine Opiates Screen Urine Fentanyl Screen Acetaminophen Ur Barbiturates Screen Ur Phencyclidine Scrn Ur Amphetamines Screen U Benzodiazepines Scrn Urine Cocaine Screen U Marijuana (THC) Screen Ethyl Alcohol COVID-19 (NURIS) COVID-19 Clin Com Medications Medications Current Medications Acetaminophen (Acetaminophen 325 Mg Tablet) 650 mg PO Q6H PRN PRN Reason: Headache/Pain Mild Scale (1-3) Al Hydroxide/Mg Hydroxide (Magnesium Hydrox/Alum Hydrox 30 Ml Oral.Susp) 30 ml PO Q6H PRN PRN Reason: Heartburn/Nausea Aripiprazole (Aripiprazole 20 Mg Tablet) 20 mg PO DAILY [facility] Last Admin: 08/03/22 08:35 Dose: 20 mg Cefuroxime Axetil (Cefuroxime Axetil 250 Mg Tablet) 250 mg PO BID [facility] Stop: 08/06/22 20:59 Last Admin: 08/03/22 08:35 Dose: 250 mg Haloperidol (Haloperidol 5 Mg Tablet) 5 mg PO BID PRN PRN Reason: agitation/AH Levetiracetam (Levetiracetam 500 Mg Tablet) 500 mg PO BID [facility] Last Admin: 08/03/22 08:35 Dose: 500 mg Lorazepam (Lorazepam 0.5 Mg Tablet) 0.5 mg PO BID PRN PRN Reason: anxiety Last Admin: 08/01/22 23:27 Dose: 0.5 mg Magnesium Hydroxide (Milk Of Magnesia 30 Ml Oral.Susp) 30 ml PO DAILY PRN PRN Reason: Constipation Prazosin HCl (Prazosin Hcl 1 Mg Capsule) 2 mg PO BEDTIME [facility]; Protocol Last Admin: 08/02/22 22:23 Dose: 2 mg Sertraline HCl (Sertraline Hcl 50 Mg Tablet) 150 mg PO DAILY [facility] Last Admin: 08/03/22 08:35 Dose: 150 mg Allergies Allergies Allergy/AdvReac Type Severity Reaction Status Date / Time No Known Allergies Allergy Verified 08/01/22 18:28 Assessment & Plan Assessment & Plan (1) PTSD (post-traumatic stress disorder): Status: Acute Code(s): F43.10 - Post-traumatic stress disorder, unspecified (2) Schizoaffective disorder: Status: Acute Code(s): F25.9 - Schizoaffective disorder, unspecified (3) Seizure disorder: Status: Acute Code(s): G40.909 - Epilepsy, unspecified, not intractable, without status epilepticus Plan 08/02: increase haldol PRNs to 5 mg each for periods of agitation or worsened AH. increase prazosin to 2 mg at HS for nightmares and insomnia in PTSD. observe for stability and Dx on inpatient unit. 3-day in, matures next saturday. 08/03: slept better, no nightmares. haldol 5 mg each doing well. 3-day up next saturday, planning to DC to care of [facility] staff on saturday. Reason for continued inpatient stay Substantial Risk for: inability to function and rapid decompensation Time Spent With Patient Time: Total time managing care of this patient today __25__ minutes.
[2022-08-03] MEDS: LORazepam 0.5 MG TABLET PO (13:29)
[2022-08-03] MEDS: HaloperidoL 5 MG TABLET PO (15:39)
[2022-08-03] MEDS: LORazepam 1 MG TABLET 2 MG PO (16:12)
[2022-08-03 20:05] VITALS: BP 109/59; PULSE 65; RESP 18; TEMP 36.1; O2SAT 99
[2022-08-03] MEDS: Prazosin HCL 1 MG CAPSULE 2 MG PO (20:14)
[2022-08-04 08:20] VITALS: BP 127/66; PULSE 70; RESP 16; TEMP 36.7; O2SAT 99
[2022-08-04] MEDS: levETIRAcetam 500 MG TABLET PO ×2 (08:28→20:28)
[2022-08-04] MEDS: Sertraline HCL 50 MG TABLET 150 MG PO (08:28)
[2022-08-04] MEDS: ARIPiprazole 20 MG TABLET PO (08:28)
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
[2022-08-04] MEDS: Acetaminophen 325 MG TABLET 650 MG PO (16:40)
[2022-08-04 17:30] VITALS: BP 108/51; PULSE 79; RESP 98; TEMP 36.6; O2SAT 96
[2022-08-04] MEDS: Ondansetron ODT 8 MG TAB.RAPDIS TRANSLINGU (17:57)
--- NOTE | 2022-08-04 18:17 | PC.NURSE ---
Patient came out of her room and reported that she had just threw up on her bed . Staff provided pt clean clothing and cleaned bed/bathroom. T/W notified and took VS, BP 108/51,79, 97.9, 96% on RA. Pt reported left sided pain that she says its been going on a long time, but it comes and goes . Pt c/o nausea and vomited moderate amt of undigested food. notified and Zofran 8mg ordered x1 then prn. Pt provided cool clothe and clean clothing. Will continue to monitor.
[2022-08-04] MEDS: LORazepam 0.5 MG TABLET PO (18:42)
[2022-08-04 20:10] VITALS: BP 139/71; PULSE 74; RESP 18; TEMP 36.8; O2SAT 96
[2022-08-04] MEDS: Prazosin HCL 1 MG CAPSULE 2 MG PO (20:29)
[2022-08-05] MEDS: Acetaminophen 325 MG TABLET 650 MG PO ×2 (04:23→16:39)
[2022-08-05] MEDS: Ondansetron ODT 4 MG TAB.RAPDIS TRANSLINGU ×2 (04:30→18:12)
[2022-08-05] MEDS: Prochlorperazine Edisylate 10 MG/2 ML VIAL 5 MG IM (05:27)
--- NOTE | 2022-08-05 05:58 | PC.NURSE ---
Addendum entered by Jacqui Huang RN 08/05/22 07:03: patient continues to intermittently vomit however her emesis appears to have a coffee ground appearance, VS 98.0 118/58 71 20. patient c/o really not feeling well and is now c/o of Right mid abdomen pain as well as the left inguinal pain Message sent to Dr. Zepeda notified and a consultation was ordered. Original Note: Anita received her HS medications at 2024 and appeared to sleep fitfully throughout the night. At 0 the patient c/o abdominal pain and received 650 mg of Tylenol. approximately 10 minutes later she vomited X'3 and received ODT Zofran 4mg. she continued to vomit and received 5mg Compazine IM which stopped her vomiting. However at approximately 0615 she was heard vomiting again. continue to monitor for hemodynamic changes.
[2022-08-05 06:25] VITALS: BP 118/58; PULSE 71; RESP 20; TEMP 36.7
[2022-08-05 07:47] LABS: MANUAL DIFF FLAG NO
[2022-08-05 07:52] LABS: Basophils Absolute Auto 0.1 X10*3/uL (0.0-0.2); Basophils Percent Auto 0.4 % (0-2); Eosinophils Absolute Auto 0.1 X10*3/uL (0.0-0.4); Hematocrit 44.6 % (37.0-47.0); Hemoglobin 14.4 g/dl (12.0-16.0); Imm Gran Abs Auto 0.05 X10*3/uL (0.00-0.03); Imm Gran Pct Auto 0.4 % (0.0-0.4); Lymphocytes Absolute Auto 3.1 X10*3/uL (1.2-4.9); Lymphocytes Percent Auto 22.9 % (20-40); Mean Corpuscular HGB Conc 32.3 g/dl (31.0-35.0); Mean Corpuscular Hemoglobin 28.8 pg (27.0-33.0); Mean Corpuscular Volume 89.2 fL (80.0-98.0); Monocytes Absolute Auto 0.7 X10*3/uL (0.1-1.2); Monocytes Percent Auto 5.4 % (2-11); Neutrophils Absolute Auto 9.4 x10*3/uL (2.0-8.3); Neutrophils Percent Auto 69.9 % (45-73); Platelet Count 278 X10*3/uL (160-400); Red Cell Distribution Width 14.5 % (11.0-16.0); White Blood Count 13.4 X10*3/uL (4.8-10.8)
[2022-08-05] MEDS: Magnesium Hydrox/Alum Hydrox 30 ML ORAL.SUSP PO (08:10)
[2022-08-05 08:14] LABS: Alanine Aminotransferase 24 U/L (0-31); Albumin Level 4.6 g/dL (3.5-5.0); Alkaline Phosphatase 121 U/L (39-117); Anion Gap 13 (12-20); Aspartate Amino Transferase 19 U/L (5-31); Bilirubin Total 0.4 mg/dL (0.0-1.0); Blood Urea Nitrogen 16 mg/dL (9-16); Calcium 9.8 mg/dL (8.4-10.2); Carbon Dioxide 30 mmol/L (22-29); Chloride 103 mmol/L (96-108); Creatinine Clr Calc Pharmacy 92.3; Estimated Glomerular Filt Rate > 60; Glucose Random 90 mg/dL (60-115); Potassium 4.5 mmol/L (3.3-5.1); Sodium 141 mmol/L (135-145); Total Protein 7.5 g/dL (6.5-8.0)
[2022-08-05 08:34] VITALS: BP 100/51; PULSE 62; RESP 18; TEMP 36.5; O2SAT 97
--- NOTE | 2022-08-05 11:30 | P.EN_ITS ---
Event Note Date of Service: 08/05/22 Event Note: 36 year old female with history schizoaffective disorder, PTSD, seizure disorder who is 4 weeks admitted to psychiatry with consult placed to hospitalist service for evaluation of nausea/vomiting abdominal pain which started last night. Denies eating any bad foods. Does smoke MJ but reports only occassional use. She did have positive UA in the ED, but denies any urinary symptoms. Has been treat with ceftin. Reports the pain is 8-9/10 in the LLQ, occ assionally LUQ and has burning pain in the epigastrum. No radiation of the pain. No fevers, chills, diarrhea, melena, hematachezia. last BM was last night and was normal. Has been vomiting repeatedly. Nursing reported ?hematemesis last night. Vomitus on patient's bed during exam is has some flecks of red but patient last ate PB&J sandwich. No coffee grounds or bright red blood noted. On exam, abd is not, nondistended with +bowel sounds, no tenderness to palpation, no guarding/rebound. No CVA tenderness. Discussed with Dr. Zepeda and Alyson, NIKUNJ. Also discussed with Dr. Woodard. At this time, given benign abd exam will hold off on imaging, but if symptoms do persist will consider. Pt's urine culture not consistent with UTI. Recommend discontinuing ceftin as this could be contributing to her symptoms. For management of nausea/vomiting, continue ondansetron, compazine. Can also consider haldol or reglan prn for nausea/vomiting. Also added tums. Time Spent With Patient Time: Total time managing care of this patient today ____ minutes.
[2022-08-05] MEDS: LORazepam 0.5 MG TABLET PO ×2 (14:52→23:02)
[2022-08-05] MEDS: HaloperidoL 5 MG TABLET PO (14:52)
--- NOTE | 2022-08-05 14:59 | HO.PSYCHPN ---
Subjective Subjective Date of Service: 08/05/22 Reason For Visit: SI, SEC 12 Interim History: calm, cooperative. intractable vomiting most of past 24H. not likely related to medications since changes have been so minimal, so no change will be made. hospitalist working on the case, will plan to go along with recommended w/u. per staff, IM compazine and PO zofran were not successful in relieving vomiting overnight. abd pain also present. hospitalist evaluating pt today. Mental Status Exam Mental Status Exam Narrative: calm, cooperative. no PMA/PMR. speech nml rate, amount, loudness, tone, latency. thoughts linear and logical. affect constricted, normo-intense, non-labile. no SI/SIBI/HI/AVH expressed. Diagnostics Vital Signs (24Hr): Vital Signs - 24 hr 08/04/22 17:30 08/04/22 20:10 08/05/22 06:25 Temperature 97.9 F 98.2 F 98.0 F Pulse Rate 79 74 71 Respiratory Rate 98 H 18 20 Blood Pressure 108/51 L 139/71 118/58 L Pulse Oximetry 96 96 Oxygen Delivery Method Room Air 08/05/22 08:34 Temperature 97.7 F Pulse Rate 62 Respiratory Rate 18 Blood Pressure 100/51 L Pulse Oximetry 97 Oxygen Delivery Method Room Air BMI result Body Mass Index 26.9 Labs 08/05/22 07:41 08/05/22 07:41 Labs: Laboratory Results - last 48 hr 08/05/22 08/05/22 07:41 07:41 WBC 13.4 H RBC 5.00 Hgb 14.4 Hct 44.6 MCV 89.2 MCH 28.8 MCHC 32.3 RDW 14.5 Plt Count 278 MPV 11.0 Immature Gran % (Auto) 0.4 Neut % (Auto) 69.9 Lymph % (Auto) 22.9 [place] % (Auto) 5.4 Eos % (Auto) 1.0 Baso % (Auto) 0.4 Lymph # (Auto) 3.1 [place] # (Auto) 0.7 Eos # (Auto) 0.1 Baso # (Auto) 0.1 Abs Immat Gran (auto) 0.05 H Absolute Neuts (auto) 9.4 H Absolute Nucleated RBC 0.000 Nucleated RBC % (auto) 0.0 Sodium 141 Potassium 4.5 Chloride 103 Carbon Dioxide 30 H Anion Gap 13 BUN 16 Creatinine 0.80 Estim Creat Clear Calc 92.3 Estimated GFR > 60 Random Glucose 90 Calcium 9.8 D Total Bilirubin 0.4 AST 19 ALT 24 Alkaline Phosphatase 121 H Total Protein 7.5 Albumin 4.6 Medications Medications Current Medications Acetaminophen (Acetaminophen 325 Mg Tablet) 650 mg PO Q6H PRN PRN Reason: Headache/Pain Mild Scale (1-3) Last Admin: 08/05/22 04:23 Dose: 650 mg Al Hydroxide/Mg Hydroxide (Magnesium Hydrox/Alum Hydrox 30 Ml Oral.Susp) 30 ml PO Q6H PRN PRN Reason: Heartburn/Nausea Last Admin: 08/05/22 08:10 Dose: 30 ml Aripiprazole (Aripiprazole 20 Mg Tablet) 20 mg PO DAILY REPLACED BY [facility] Last Admin: 08/05/22 08:58 Dose: Not Given Calcium Carbonate (Calcium Carbonate 750 Mg Tab.Chew) 750 mg PO Q4H PRN PRN Reason: epigastric pain Haloperidol (Haloperidol 5 Mg Tablet) 5 mg PO BID PRN PRN Reason: agitation/AH Last Admin: 08/05/22 14:52 Dose: 5 mg Levetiracetam (Levetiracetam 500 Mg Tablet) 500 mg PO BID REPLACED BY [facility] Last Admin: 08/05/22 08:58 Dose: Not Given Lorazepam (Lorazepam 0.5 Mg Tablet) 0.5 mg PO BID PRN PRN Reason: anxiety Last Admin: 08/05/22 14:52 Dose: 0.5 mg Magnesium Hydroxide (Milk Of Magnesia 30 Ml Oral.Susp) 30 ml PO DAILY PRN PRN Reason: Constipation Ondansetron HCl (Ondansetron Odt 4 Mg Tab.Rapdis) 4 mg TRANSLINGU Q6H PRN PRN Reason: Nausea Last Admin: 08/05/22 04:30 Dose: 4 mg Prazosin HCl (Prazosin Hcl 1 Mg Capsule) 2 mg PO BEDTIME REPLACED BY [facility]; Protocol Last Admin: 08/04/22 20:29 Dose: 2 mg Sertraline HCl (Sertraline Hcl 50 Mg Tablet) 150 mg PO DAILY REPLACED BY [facility] Last Admin: 08/05/22 08:58 Dose: Not Given Allergies Allergies Allergy/AdvReac Type Severity Reaction Status Date / Time No Known Allergies Allergy Verified 08/01/22 18:28 Assessment & Plan Assessment & Plan (1) PTSD (post-traumatic stress disorder): Status: Acute Code(s): F43.10 - Post-traumatic stress disorder, unspecified (2) Schizoaffective disorder: Status: Acute Code(s): F25.9 - Schizoaffective disorder, unspecified (3) Seizure disorder: Status: Acute Code(s): G40.909 - Epilepsy, unspecified, not intractable, without status epilepticus Plan 08/02: increase haldol PRNs to 5 mg each for periods of agitation or worsened AH. increase prazosin to 2 mg at HS for nightmares and insomnia in PTSD. observe for stability and Dx on inpatient unit. 3-day in, matures next saturday. 08/03: slept better, no nightmares. haldol 5 mg each doing well. 3-day up next saturday, planning to DC to care of [facility] staff on saturday. 08/04: sleeping well, no nightmares. feels content with regimen. stable presentation. continue current mgmt. 08/05: intractable vomiting past 24H. follow hospitalist recs. no change to psych meds, stable psych presentation. Reason for continued inpatient stay Substantial Risk for: inability to function and rapid decompensation Time Spent With Patient Time: Total time managing care of this patient today __35__ minutes.
[2022-08-05 22:56] VITALS: BP 123/72; PULSE 108; TEMP 36.6; O2SAT 97
[2022-08-05] MEDS: Lidocaine 4 % Patch ADH..PATCH 1 PATCH TRANSDERMA (23:00)
[2022-08-05] MEDS: levETIRAcetam 500 MG TABLET PO (23:01)
[2022-08-05] MEDS: Prazosin HCL 1 MG CAPSULE 2 MG PO (23:01)
[2022-08-06] MEDS: Ondansetron ODT 4 MG TAB.RAPDIS TRANSLINGU (05:43)
[2022-08-06] MEDS: Acetaminophen 325 MG TABLET 650 MG PO (05:43)
[2022-08-06 06:00] VITALS: BP 103/57; PULSE 61; RESP 16; TEMP 36.3; O2SAT 100
[2022-08-06] MEDS: HaloperidoL 5 MG TABLET PO (06:54)
[2022-08-06] MEDS: ARIPiprazole 20 MG TABLET PO (08:28)
[2022-08-06] MEDS: Sertraline HCL 50 MG TABLET 150 MG PO (08:28)
[2022-08-06] MEDS: levETIRAcetam 500 MG TABLET PO ×2 (08:28→22:00)
[2022-08-06] MEDS: Lidocaine 4 % Patch ADH..PATCH 1 PATCH TRANSDERMA (08:29)
[2022-08-06] MEDS: LORazepam 0.5 MG TABLET PO (12:38)
--- NOTE | 2022-08-06 14:54 | P.PNPSI_ITS ---
Subjective Subjective Date of Service: 08/06/22 Reason For Visit: SI, SEC 12 Interim History: stopped ceftin yesterday, no vomiting since last evening. stable, discharging tomorrow. per staff, CT ABD unremarkable. lidoderm to left inguinal area. no vomit since last benjie 7 pm. napped eves. Mental Status Exam Mental Status Exam Narrative: calm, cooperative. no PMA/PMR. speech nml rate, amount, loudness, tone, latency. thoughts linear and logical. affect constricted, normo-intense, non- labile. no SI/SIBI/HI/AVH expressed. Diagnostics Vital Signs (24Hr): Vital Signs - 24 hr 08/05/22 22:56 08/06/22 06:00 Temperature 97.9 F 97.4 F Pulse Rate 108 H 61 Respiratory Rate 16 Blood Pressure 123/72 103/57 L Pulse Oximetry 97 100 Oxygen Delivery Method Room Air Room Air BMI result Body Mass Index 26.9 Labs 08/05/22 07:41 08/05/22 07:41 Labs: Laboratory Results - last 48 hr 08/05/22 08/05/22 07:41 07:41 WBC 13.4 H RBC 5.00 Hgb 14.4 Hct 44.6 MCV 89.2 MCH 28.8 MCHC 32.3 RDW 14.5 Plt Count 278 MPV 11.0 Immature Gran % (Auto) 0.4 Neut % (Auto) 69.9 Lymph % (Auto) 22.9 [place] % (Auto) 5.4 Eos % (Auto) 1.0 Baso % (Auto) 0.4 Lymph # (Auto) 3.1 [place] # (Auto) 0.7 Eos # (Auto) 0.1 Baso # (Auto) 0.1 Abs Immat Gran (auto) 0.05 H Absolute Neuts (auto) 9.4 H Absolute Nucleated RBC 0.000 Nucleated RBC % (auto) 0.0 Sodium 141 Potassium 4.5 Chloride 103 Carbon Dioxide 30 H Anion Gap 13 BUN 16 Creatinine 0.80 Estim Creat Clear Calc 92.3 Estimated GFR > 60 Random Glucose 90 Calcium 9.8 D Total Bilirubin 0.4 AST 19 ALT 24 Alkaline Phosphatase 121 H Total Protein 7.5 Albumin 4.6 Imaging Radiology Impressions: ITS Impressions Abdomen/Pelvis CT 08/05/22 16:20 IMPRESSION: 1. No acute intra-abdominal process seen. 2. Mild constipation. Fleischner guidelines were followed. Medications Medications Current Medications Acetaminophen (Acetaminophen 325 Mg Tablet) 650 mg PO Q6H PRN PRN Reason: Headache/Pain Mild Scale (1-3) Last Admin: 08/06/22 05:43 Dose: 650 mg Al Hydroxide/Mg Hydroxide (Magnesium Hydrox/Alum Hydrox 30 Ml Oral.Susp) 30 ml PO Q6H PRN PRN Reason: Heartburn/Nausea Last Admin: 08/05/22 08:10 Dose: 30 ml Aripiprazole (Aripiprazole 20 Mg Tablet) 20 mg PO DAILY [facility] Last Admin: 08/06/22 08:28 Dose: 20 mg Calcium Carbonate (Calcium Carbonate 750 Mg Tab.Chew) 750 mg PO Q4H PRN PRN Reason: epigastric pain Haloperidol (Haloperidol 5 Mg Tablet) 5 mg PO BID PRN PRN Reason: agitation/AH Last Admin: 08/06/22 06:54 Dose: 5 mg Levetiracetam (Levetiracetam 500 Mg Tablet) 500 mg PO BID [facility] Last Admin: 08/06/22 08:28 Dose: 500 mg Lidocaine (Lidocaine 4 % Patch Adh..Patch) 1 patch TRANSDERMA DAILY [facility]; Protocol Last Admin: 08/06/22 08:29 Dose: 1 patch Lorazepam (Lorazepam 0.5 Mg Tablet) 0.5 mg PO BID PRN PRN Reason: anxiety Last Admin: 08/06/22 12:38 Dose: 0.5 mg Magnesium Hydroxide (Milk Of Magnesia 30 Ml Oral.Susp) 30 ml PO DAILY PRN PRN Reason: Constipation Ondansetron HCl (Ondansetron Odt 4 Mg Tab.Rapdis) 4 mg TRANSLINGU Q6H PRN PRN Reason: Nausea Last Admin: 08/06/22 05:43 Dose: 4 mg Polyethylene Glycol (Polyethylene Glycol 3350 17 Gm Powd.Pack) 17 gm PO DAILY PRN PRN Reason: Constipation Prazosin HCl (Prazosin Hcl 1 Mg Capsule) 2 mg PO BEDTIME [facility]; Protocol Last Admin: 08/05/22 23:01 Dose: 2 mg Sertraline HCl (Sertraline Hcl 50 Mg Tablet) 150 mg PO DAILY [facility] Last Admin: 08/06/22 08:28 Dose: 150 mg Allergies Allergies Allergy/AdvReac Type Severity Reaction Status Date / Time No Known Allergies Allergy Verified 08/01/22 18:28 Assessment & Plan Assessment & Plan (1) PTSD (post-traumatic stress disorder): Status: Acute Code(s): F43.10 - Post-traumatic stress disorder, unspecified (2) Schizoaffective disorder: Status: Acute Code(s): F25.9 - Schizoaffective disorder, unspecified (3) Seizure disorder: Status: Acute Code(s): G40.909 - Epilepsy, unspecified, not intractable, without status epilepticus Plan 08/02: increase haldol PRNs to 5 mg each for periods of agitation or worsened AH. increase prazosin to 2 mg at HS for nightmares and insomnia in PTSD. observe for stability and Dx on inpatient unit. 3-day in, matures next saturday. 08/03: slept better, no nightmares. haldol 5 mg each doing well. 3-day up next saturday, planning to DC to care of [facility] staff on saturday. 08/04: sleeping well, no nightmares. feels content with regimen. stable presentation. continue current mgmt. 08/05: intractable vomiting past 24H. follow hospitalist recs. no change to psych meds, stable psych presentation. 08/06: vomiting stopped, likely associated with ceftin. stable. discharging tomorrow. continue current mgmt. Reason for continued inpatient stay Substantial Risk for: stable for discharge Time Spent With Patient Time: Total time managing care of this patient today ____ minutes.
[2022-08-06 21:55] VITALS: BP 119/58; PULSE 87; TEMP 35.9; O2SAT 97
[2022-08-06] MEDS: Prazosin HCL 1 MG CAPSULE 2 MG PO (22:00)
[2022-08-07] MEDS: HaloperidoL 5 MG TABLET PO (05:25)
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
[2022-08-07 08:05] VITALS: BP 122/65; PULSE 60; RESP 18; TEMP 36.6; O2SAT 100
[2022-08-07] MEDS: levETIRAcetam 500 MG TABLET PO (09:35)
[2022-08-07] MEDS: Sertraline HCL 50 MG TABLET 150 MG PO (09:35)
[2022-08-07] MEDS: ARIPiprazole 20 MG TABLET PO (09:35)
--- NOTE | 2022-08-07 13:08 | PC.NURSE ---
01630 Pt ready and aware of discharge . Pt denies SI/HI/AH/VH at this time. Reviewed Discharge instructions and medications with patient.< she verbalized understanding. Reviewed appointment times and dates. Belongings returned back to patient. Pt was escorted by staff down to lobby.
== END 2022-08-07 12:56 | disposition home or self-care (01) | DRG 750 ==
LOC: HO.ED 20:21 → HO.PADLT16 22:31
PROVIDERS: Hospitalist; Physician Assistant; Admitting Provider Clinical Nurse Specialist Psychiatric/Mental Health, Adult; Emergency Provider Internal Medicine; Visit Provider Psychiatry & Neurology Psychiatry
DX: F25.9 Schizoaffective disorder, unspecified (principal); R45.851 Suicidal ideations; G40.909 Epilepsy, unspecified, not intractable, without status epilepticus; F17.210 Nicotine dependence, cigarettes, uncomplicated; F43.10 Post-traumatic stress disorder, unspecified; K59.00 Constipation, unspecified; N39.0 Urinary tract infection, site not specified; Z20.822 Contact with and (suspected) exposure to COVID-19; Z62.810 Personal history of physical and sexual abuse in childhood; Z71.6 Tobacco abuse counseling; Z79.3 Long term (current) use of hormonal contraceptives; Z79.899 Other long term (current) drug therapy
CPT/HCPCS: 36415; 74176; 80053; 80061; 80143; 80179; 80307; 81001; 81025; 82607; 82746; 83036; 83735; 84439; 84443; 85025; 87086; 87635; 93005; 99285